=== PATIENT | female | born 1950 | race Caucasian/White ===

== ENCOUNTER → 2019-06-11 10:19 | Outpatient (CLI) | payer OTHER, SELFPAY ==
--- NOTE | 2019-06-11 | DI.RAD.S_ITS ---
PROCEDURE: XR HIP W PEL IF DONE LT 2V INDICATIONS: left hip pain TECHNIQUE: AP and lateral views of the hip were acquired. COMPARISON: None. FINDINGS: Bones: No fractures or dislocations. No suspicious bony lesions. The visualized pelvic ring appears intact. There are mild degenerative changes of the left hip as evidenced by severe joint space narrowing and osteophyte formation. There is a 0.5 cm rounded circumscribed sclerotic focus projecting over it the medial left superior pubic ramus near the pubic symphysis, which may represent a bone enostosis or pelvic phlebolith. Soft tissues: No suspicious soft tissue calcifications or masses. IMPRESSION: Mild degenerative changes of the left hip. Dictated by: Power Porras M.D. on 06/11/2019 at 14:49 Approved by: Power Porras M.D. on 06/11/2019 at 14:52
== END ==
PROVIDERS: PCP Family Medicine; Visit Provider Physician Assistant
DX: M25.552 Pain in left hip (principal)
CPT/HCPCS: 73502

== ENCOUNTER 2019-06-20 19:55 | Emergency (ER) | payer OTHER, SELFPAY ==
[2019-06-20 20:10] VITALS: BP 148/75; PULSE 78; RESP 18; TEMP 36.4; O2SAT 98
--- NOTE | 2019-06-20 20:28 | ED.ABDPAIN ---
HPI - Abdominal Pain General Chief Complaint: Abdominal Pain Stated Complaint: sharp abd pains Time Seen by Provider: 06/20/19 20:25 Source: patient Mode of arrival: ambulatory Limitations: no limitations History of Present Illness HPI narrative: Patient is a 68-year-old female who presents with lower abdominal left discomfort. She got a steroid shot in her left hip for bursitis. She initially thought her left lower quadrant pain was may be inflammation number hip. However it has progressively gotten worse. She has had normal bowel movement she denies any fevers or chills. She has no nausea or vomiting. The pain does not move. She never had anything like this before. MD complaint: abdominal pain Pain Consistency: intermittent Location: LLQ Severity: mild Migration to: no migration Relieving factors: nothing Related Data Home Medications Medication Instructions Recorded Confirmed calcium-magnesium 1 tab PO DAILY 06/20/19 06/20/19 cholecalciferol (vitamin D3) 2,000 unit PO DAILY 06/20/19 06/20/19 [Vitamin D3] omega3,5,6,7,9 no.1-salmon oil 1 cap PO DAILY 06/20/19 06/20/19 [Complete [place]] Allergies Allergy/AdvReac Type Severity Reaction Status Date / Time naproxen [NAPROXEN] AdvReac Severe LIGHTHEADED, Unverified 01/11/18 12:49 INTERNAL BLEEDING Review of Systems Review of Systems Narrative: GENERAL: Denies chills, fatigue, malaise, fever, sweats, travel HEENT: Denies sinus pain, ear pain, sore throat, difficulty swallowing, neck pain RESPIRATORY: Denies dyspnea, cough, wheezing, hemoptysis, sputum. CARDIOVASCULAR: Denies chest pain, palpitations, orthopnea, edema GASTROINTESTINAL: See HPI : Denies dysuria, frequency, incontinence, hematuria, urinary retention, flank pain. MUSCULOSKELETAL: Denies weakness, joint pain, or bony pain SKIN: No rash, no erythema, no pruritus NEUROLOGIC: Denies weakness, dizziness, headache, numbness, change in speech, confusion PSYCHIATRIC: No concerning psychosocial issues. 12 point review of systems is negative except for those stated above and HPI [facility] Medical History Ambulates with cane (Acute) Bursitis of left hip (Acute) GI bleed due to NSAIDs (Acute) Social History Smoking Status: Never smoker Social History Smoking Status: Never smoker Exam Initial Vital Signs Initial Vital Signs: Vital Signs Temperature 97.6 F 06/20/19 20:10 Pulse Rate 78 06/20/19 20:10 Respiratory Rate 18 06/20/19 20:10 Blood Pressure 148/75 H 06/20/19 20:10 Pulse Oximetry 98 06/20/19 20:10 GENERAL: Well-appearing, well-nourished and in no acute distress. HEENT: Head atraumatic,EOMI, pupils reactive, face symmetric CARDIOVASCULAR: Regular rate and rhythm without murmurs, rubs or gallops. RESPIRATORY: Breath sounds equal bilaterally, no wheezes rales or rhonchi. ABDOMEN: Soft, minimal left lower quadrant pain no guarding no rebound : No CVA tenderness EXTREMITIES: Normal range of motion, no clubbing or edema. Neurovascularly intact NEUROLOGICAL: Alert and oriented x4.Normal gait and speech. Cranial nerves II through XII grossly intact. SKIN: Warm, dry, no laceration, no petechiae, no rashes or lesions. Course Orders Ordered: ED Orders 06/20/19 20:25 Complete Blood Count AUTO DIFF Stat Comprehensive Metabolic Panel Stat Lipase Stat Partial Thromboplastin Time Stat Prothrombin Time INR Stat 06/20/19 20:30 Urine Culture Stat Urine Microscopic Stat 06/20/19 20:44 CT abdomen pelvis w con Stat Vital Signs Vital signs: Vital Signs - 8 hr 06/20/19 20:10 Temperature 97.6 F Pulse Rate 78 Respiratory Rate 18 Blood Pressure 148/75 H Pulse Oximetry 98 MDM - Abdominal Pain Lab Data Attestation: I reviewed the patient's lab results. Result diagrams: 06/20/19 20:25 06/20/19 20:25 Labs: Lab Results 06/20/19 06/20/19 06/20/19 Range/Units 20:25 20:25 20:25 WBC 7.1 (4.5-11.0) X10^3/uL RBC 4.55 (4.0-5.2) X10^6/uL Hgb 15.2 (12.0-16.0) g/dL Hct 43.7 (36-46) % MCV 96.1 (80-100) fL MCH 33.4 (26-34) PG MCHC 34.7 (30-36) % RDW 13.5 (11.6-14.8) % Plt Count 343 (150-400) X10^3/uL Neut % (Auto) 70.1 (50-75) % Lymph % (Auto) 18.8 L (25-40) % [place] % (Auto) 10.3 (3-14) % Eos % (Auto) 0.1 L (2-4) % Baso % (Auto) 0.7 (0-2) % Neut # (Auto) 5000 (6567-2091) /uL Lymph # (Auto) 1300 (2152-7586) /uL [place] # (Auto) 700 (0-900) /uL Eos # (Auto) 0 (0-450) /uL Baso # (Auto) 100 (0-100) /uL PT 10.9 (10.1-12.7) SECONDS INR 1.0 (0.9-1.3) APTT 31 (26.4-36.2) SECONDS Sodium 136 L (137-145) mmol/L Potassium 4.4 (3.4-5.1) mmol/L Chloride 95 L (98-107) mmol/L Carbon Dioxide 28 (22-32) mmol/L BUN 16 (7-17) mg/dL Creatinine 0.60 (0.52-1.04) mg/dL Estimated GFR > 60.0 (>60) mL/min BUN/Creatinine Ratio 26.7 H (6-22) Glucose 117 H (80-110) mg/dL Calcium 10.3 H (8.4-10.2) mg/dL Total Bilirubin 0.4 (0.2-1.3) mg/dL AST 17 (14-36) IU/L ALT 13 (9-52) IU/L Alkaline Phosphatase 78 (38-126) U/L Total Protein 7.2 (6.3-8.2) g/dL Albumin 4.4 (3.5-5.0) g/dL Globulin 2.8 (1.7-4.1) g/dL Albumin/Globulin Ratio 1.6 (1.0-2.8) Lipase 120 (23-300) U/L Urine RBC (0-5/HPF) Urine WBC (0-5/HPF) Urine Bacteria (None) Ur Culture Indicated? Micro UA Comment 06/20/19 Range/Units 20:30 WBC (4.5-11.0) X10^3/uL RBC (4.0-5.2) X10^6/uL Hgb (12.0-16.0) g/dL Hct (36-46) % MCV (80-100) fL MCH (26-34) PG MCHC (30-36) % RDW (11.6-14.8) % Plt Count (150-400) X10^3/uL Neut % (Auto) (50-75) % Lymph % (Auto) (25-40) % [place] % (Auto) (3-14) % Eos % (Auto) (2-4) % Baso % (Auto) (0-2) % Neut # (Auto) (1245-3174) /uL Lymph # (Auto) (5418-6934) /uL [place] # (Auto) (0-900) /uL Eos # (Auto) (0-450) /uL Baso # (Auto) (0-100) /uL PT (10.1-12.7) SECONDS INR (0.9-1.3) APTT (26.4-36.2) SECONDS Sodium (137-145) mmol/L Potassium (3.4-5.1) mmol/L Chloride (98-107) mmol/L Carbon Dioxide (22-32) mmol/L BUN (7-17) mg/dL Creatinine (0.52-1.04) mg/dL Estimated GFR (>60) mL/min BUN/Creatinine Ratio (6-22) Glucose (80-110) mg/dL Calcium (8.4-10.2) mg/dL Total Bilirubin (0.2-1.3) mg/dL AST (14-36) IU/L ALT (9-52) IU/L Alkaline Phosphatase (38-126) U/L Total Protein (6.3-8.2) g/dL Albumin (3.5-5.0) g/dL Globulin (1.7-4.1) g/dL Albumin/Globulin Ratio (1.0-2.8) Lipase (23-300) U/L Urine RBC 5-10/hpf H (0-5/HPF) Urine WBC 1-5/hpf (0-5/HPF) Urine Bacteria Few (2-10) H (None) Ur Culture Indicated? Specimen cultured Micro UA Comment Nuno + Point of care testing: Urine Dip Bedside Urine Glucose Negative Bedside Urine Bilirubin - Negative Bedside Urine Ketone - Negative Urine Specific [place] 1.010 Bedside Urine Occult Blood ++ Bedside Urine pH 7.0 Bedside Urine Protein - Negative Bedside Urine Urobilinogen - Negative Bedside Urine Nitrite - Negative Bedside Urine Leukocytes + [address] scan - abdomen: Radiologist's impression: PROCEDURE: CT ABDOMEN PELVIS W CON INDICATIONS: llq pain TECHNIQUE: After the administration of intravenous contrast, 5 mm thick sections acquired from the diaphragm to the symphysis. 5 mm coronal and sagittal reformats were acquired. For radiation dose reduction, the following was used: automated exposure control, adjustment of mA and/or kV according to patient size. COMPARISON: [facility], CT, KIDNEY/ URETER/BLADDER, 04/05/2015, 13:15. [facility], CT, CT ABDOMEN PELVIS WITH CONTRAST, 04/13/2018, 17:35. [facility], CT, CT CHEST WITHOUT CONTRAST, 03/01/2019, 14:44. FINDINGS: Image quality: Excellent. ABDOMEN: Lung bases: There is a stable area of soft tissue involving the left lower lobe medially Lung bases are otherwise clear. Heart size is normal. Solid organs: Liver is normal in size and enhancement. Stable water density liver cysts are seen. Gallbladder is largely collapsed at the time of this study. Biliary system is non dilated. Pancreas enhances normally. Spleen is normal in size and enhancement. No adrenal nodules. Kidneys demonstrate normal size and enhancement, without hydronephrosis. Peritoneum and bowel: In this patient with this given history, scrutiny is given to the sigmoid colon. No focal sigmoid colon abnormality is seen. The small bowel loops are diffusely hyperenhancing and demonstrate generalized wall thickening. The duodenum is prominent and fluid-filled. There is a moderate amount of stool seen within the colon. No free air can be seen. No significant free pelvic fluid can be seen. No loculated fluid collection is seen to suggest abscess. Nodes and vessels: No retroperitoneal or mesenteric adenopathy by size criteria. Aorta and inferior vena cava are normal in size. Miscellaneous: No ventral hernias. PELVIS: Genitourinary: Bladder wall thickness is normal. Miscellaneous: No inguinal hernias or adenopathy. Bones: No suspicious bony lesions. No vertebral body compression fractures. Mild dextroconvex scoliotic curvature is seen. Age-appropriate bony degenerative changes are seen. IMPRESSION: Diffuse enteritis. Incidental note is made of: Stable left lower lobe bronchopulmonary sequestration Liver cysts Dextroconvex clinic curvature Dictated by: Abraham Malloy M.D. on 06/20/2019 at 21:05 MDM Narrative Medical decision making narrative: Patient is noted to have diffuse enteritis on CT. She has no leukocytosis or fever. His she does not want anything for pain. At this time I recommend conservative I tried to reassure her that this is unlikely related to her bursitis in her hip injection. Recommend outpatient follow-up. Discharge Plan Departure Patient Disposition: Home Clinical Impression: Colitis Discharge Date/Time: 06/20/19 21:50 Instructions: Clear Liquid Diet, DI for Colitis Activity Restrictions/Additional Instructions: *You have been diagnosed with colitis *What to do: Inflammation of your intestine. This will likely clear up on its own at this time no indication for antibiotics. Recommend trying a clear liquid diet for the next 24-48 hours. You may advance diet as tolerated *Continue to take medications as directed *Follow up with your primary care provider in 2-3 days *Return to ER if you should have increasing pain bloody stools persistent vomiting inability to tolerate fluids or any new, worsening or concerning symptoms Prescriptions: No Action calcium-magnesium 300-300 mg Tablet 1 tab PO DAILY RF: 0 cholecalciferol (vitamin D3) [Vitamin D3] 1,000 unit Capsule 2,000 unit PO DAILY RF: 0 Complete [place] 700-1,500 mg-mg Capsule 1 cap PO DAILY RF: 0 Referrals: Joelle March MD [Primary Care Provider] -
[2019-06-20 20:40] LABS: Add Manual Diff / Slide Review NO; Basophils Absolute Auto 100 /uL (0-100); Basophils Percent Auto 0.7 % (0-2); Eosinophils Absolute Auto 0 /uL (0-450); Eosinophils Percent Auto 0.1 % (2-4); Hematocrit 43.7 % (36-46); Hemoglobin 15.2 g/dL (12.0-16.0); Lymphocytes Absolute Auto 1300 /uL (1100-4500); Lymphocytes Percent Auto 18.8 % (25-40); Mean Corpuscular HGB Conc 34.7 % (30-36); Mean Corpuscular Hemoglobin 33.4 PG (26-34); Mean Corpuscular Volume 96.1 fL (80-100); Monocytes Absolute Auto 700 /uL (0-900); Monocytes Percent Auto 10.3 % (3-14); Neutrophils Absolute Auto 5000 /uL (1500-7000); Neutrophils Percent Auto 70.1 % (50-75); Platelet Count 343 X10^3/uL (150-400); Red Blood Cell Count 4.55 X10^6/uL (4.0-5.2); Red Cell Distribution Width 13.5 % (11.6-14.8); White Blood Cell Count 7.1 X10^3/uL (4.5-11.0)
[2019-06-20 20:42] LABS: Alanine Aminotransferase 13 IU/L (9-52); Albumin 4.4 g/dL (3.5-5.0); Albumin Globulin Ratio 1.6 (1.0-2.8); Alkaline Phosphatase 78 U/L (38-126); Aspartate Aminotransferase 17 IU/L (14-36); BUN Creatinine Ratio 26.7 (6-22); Bilirubin Total 0.4 mg/dL (0.2-1.3); Blood Urea Nitrogen 16 mg/dL (7-17); Calcium 10.3 mg/dL (8.4-10.2); Carbon Dioxide 28 mmol/L (22-32); Chloride 95 mmol/L (98-107); Estimated Glomerular Filt Rate > 60.0 mL/min (>60); Globulin 2.8 g/dL (1.7-4.1); Glucose 117 mg/dL (80-110); HEMOLYSIS < 15 (0-50); Lipase 120 U/L (23-300); Potassium 4.4 mmol/L (3.4-5.1); Sodium 136 mmol/L (137-145); Total Protein 7.2 g/dL (6.3-8.2)
--- NOTE | 2019-06-20 20:44 | DI.CT.S_ITS ---
PROCEDURE: CT ABDOMEN PELVIS W CON INDICATIONS: llq pain TECHNIQUE: After the administration of intravenous contrast, 5 mm thick sections acquired from the diaphragm to the symphysis. 5 mm coronal and sagittal reformats were acquired. For radiation dose reduction, the following was used: automated exposure control, adjustment of mA and/or kV according to patient size. COMPARISON: [facility], CT, KIDNEY/ URETER/BLADDER, 04/05/2015, 13:15. [facility], CT, CT ABDOMEN PELVIS WITH CONTRAST, 04/13/2018, 17:35. [facility], CT, CT CHEST WITHOUT CONTRAST, 03/01/2019, 14:44. FINDINGS: Image quality: Excellent. ABDOMEN: Lung bases: There is a stable area of soft tissue involving the left lower lobe medially Lung bases are otherwise clear. Heart size is normal. Solid organs: Liver is normal in size and enhancement. Stable water density liver cysts are seen. Gallbladder is largely collapsed at the time of this study. Biliary system is non dilated. Pancreas enhances normally. Spleen is normal in size and enhancement. No adrenal nodules. Kidneys demonstrate normal size and enhancement, without hydronephrosis. Peritoneum and bowel: In this patient with this given history, scrutiny is given to the sigmoid colon. No focal sigmoid colon abnormality is seen. The small bowel loops are diffusely hyperenhancing and demonstrate generalized wall thickening. The duodenum is prominent and fluid-filled. There is a moderate amount of stool seen within the colon. No free air can be seen. No significant free pelvic fluid can be seen. No loculated fluid collection is seen to suggest abscess. Nodes and vessels: No retroperitoneal or mesenteric adenopathy by size criteria. Aorta and inferior vena cava are normal in size. Miscellaneous: No ventral hernias. PELVIS: Genitourinary: Bladder wall thickness is normal. Miscellaneous: No inguinal hernias or adenopathy. Bones: No suspicious bony lesions. No vertebral body compression fractures. Mild dextroconvex scoliotic curvature is seen. Age-appropriate bony degenerative changes are seen. IMPRESSION: Diffuse enteritis. Incidental note is made of: Stable left lower lobe bronchopulmonary sequestration Liver cysts Dextroconvex clinic curvature Dictated by: Abraham Malloy M.D. on 06/20/2019 at 21:05 Approved by: Abraham Malloy M.D. on 06/20/2019 at 21:11
[2019-06-20 20:51] LABS: Prothrombin Time 10.9 SECONDS (10.1-12.7)
[2019-06-20 20:54] LABS: PTT Partial Thromboplastin Tim 31 SECONDS (26.4-36.2)
[2019-06-20 20:56] LABS: Bacteria Urine Few (2-10); RBC Urine 5-10/HPF (0-5/HPF); WBC Urine 1-5/HPF (0-5/HPF)
[2019-06-20 20:57] LABS: Culture Indicated Urine Specimen Cultured; Urine Comments LEU +
== END 2019-06-20 21:50 | disposition home or self-care (01) ==
PROVIDERS: Emergency Provider Emergency Medicine; Family Provider Family Medicine; PCP Family Medicine
DX: K52.9 Noninfective gastroenteritis and colitis, unspecified (principal)
CPT/HCPCS: 36591; 74177; 80053; 81003; 81015; 83690; 85025; 85610; 85730; 87086; 99282; 99285; Q9967

== ENCOUNTER 2021-07-17 09:12 | Emergency (ER) | payer MEDICARE, SELFPAY ==
[2021-07-17 09:15] VITALS: BP 182/76; PULSE 82; RESP 18; TEMP 37; O2SAT 100; BMI 19.9
[2021-07-17 09:23] VITALS: PULSE 100; O2SAT 98
[2021-07-17 09:30] VITALS: PULSE 88; RESP 18; O2SAT 100
[2021-07-17 09:31] VITALS: BP 154/68; PULSE 91; RESP 17; O2SAT 99
--- NOTE | 2021-07-17 09:44 | ED_ITS ---
HPI - Arrhythmia/Palpitations General Chief Complaint: Arrhythmia/Palpitations Stated Complaint: low pulse/sent by Dr. Becerra Time Seen by Provider: 07/17/21 09:25 Source: patient Mode of arrival: Ambulatory Limitations: no limitations History of Present Illness HPI narrative: 70-year-old woman recently started on amlodipine for blood pressure issues comes in after her blood pressure cuff shoulder her heart rate was 47 and brief nurse call instructed her to come to the emergency department. For the last week or so she has been having some general malaise and fatigue. No chest pain palpitations, fevers cough chills, vomiting, diarrhea common duct dark stools, abdominal pain, acute neurologic findings. She does have some chronic neck pain and that has been bothering her on the right side in the trapezius muscle area. She was seen at urgent care on Tuesday with blood work done was reassured that things were normal. She met with her new primary care physician, Dr. Becerra on Tuesday with blood work repeated. Zio patch was placed on Tuesday as well and due to be removed and red next Tuesday. Related Data Home Medications Medication Instructions Recorded Confirmed calcium-magnesium 300 mg-300 mg 1 tab PO DAILY 06/20/19 06/20/19 tablet cholecalciferol (vitamin D3) 25 2,000 unit PO DAILY 06/20/19 06/20/19 mcg (1,000 unit) capsule (Vitamin D3) omega 3,5,6,7,9 combination no.1 1 cap PO DAILY 06/20/19 06/20/19 700 mg-salmon oil 1,500 mg capsule (Complete [place]) Allergies Allergy/AdvReac Type Severity Reaction Status Date / Time naproxen [NAPROXEN] AdvReac Severe LIGHTHEADED, Verified 07/17/21 09:32 INTERNAL BLEEDING Review of Systems Review of Systems Narrative: Remainder of complete review of systems is otherwise unremarkable except for that included in the HPI. Patient History Medical History (Updated 07/17/21 @ 10:21 by Christa Garcia MD) Ambulates with cane Bursitis of left hip GI bleed due to NSAIDs Social History Smoking Status: Never smoker Smoking Status: Never smoker alcohol intake frequency: holidays/special occasions only Substance Use Type: does not use Exam Narrative Exam Narrative: General: Healthy appearing, in no acute distress. Able to give a complete and coherent history. Well-nourished well-developed HEENT: Moist mucous membranes, normal sclera with reactive pupils, Neck: No JVD, supple Respiratory: Lungs are clear to auscultation, no wheezing no rales no rhonchi. Full and symmetrical air movement Cardiac: Regular rate and rhythm no murmurs no bruits Abdomen: Soft, nontender, good bowel tones, no flank pain Skin: Warm and dry, no rashes Neurologic: Grossly neurologically intact with no obvious asymmetries or abnormalities Extremities: No trauma, well perfused Psych: Cooperative, appropriate insight and affect Initial Vital Signs Initial Vital Signs: Vital Signs Temperature 98.6 F 07/17/21 09:15 Pulse Rate 82 07/17/21 09:15 Respiratory Rate 18 07/17/21 09:15 Blood Pressure 182/76 H 07/17/21 09:15 Pulse Oximetry 100 07/17/21 09:15 Course Orders Ordered: ED Orders 07/17/21 09:34 EKG-12 Lead Stat Vital Signs Vital signs: Vital Signs - 8 hr 07/17/21 09:15 Temperature 98.6 F Pulse Rate 82 Respiratory Rate 18 Blood Pressure 182/76 H Pulse Oximetry 100 MDM - Arrhythmia/Palpitations ECG Data Interpretation: Sinus rhythm with frequent PVCs at a rate of 85 Normal axis No acute ischemic changes MDM Narrative Medical decision making narrative: Concerns and findings are reviewed with Dr Becerra. Given her blood work on Tuesday and Tuesday of this week that is unremarkable along with a a normal thyroid study done on , reassuring exam, reassuring EKG and normal rate rhythm and blood pressures in the emergency department in the setting of Zio patch currently in place I do not think that additional workup is required today. I suspect that the frequent PVCs were giving her blood pressure cuff an abnormally low heart rate. Today I showed her how to check her own heart rate to double-check monitors. She has follow-up scheduled with Dr. Becerra already. Over the course of her ER stay her blood pressure has started to trend down and PVCs have completely resolved. She did take her 2.5 mg of amlodipine about 2 hours prior to arrival and we may be seeing the positive physiologic effects of this. At this time there is no evidence of life-threatening arrhythmia, acute coronary syndrome, stroke or alternative diagnosis that would require hospitalization. She is safe for home discharge Discharge Plan Departure Patient Disposition: Home Clinical Impression: Palpitations Instructions: Premature Ventricular Beats Activity Restrictions/Additional Instructions: Thank you for coming in today In talking with Dr. Becerra and reviewing blood work from Tuesday along with your EKG from today, I am reassured that we do not need to do any additional workup today. The Zio patch that you currently have in place will offer additional insight. Please continue the amlodipine as started, keep your follow-up appointments and if things get worse you are welcome to return to the ER. Prescriptions: No Action calcium-magnesium 300-300 mg Tablet 1 tab PO DAILY RF: 0 cholecalciferol (vitamin D3) [Vitamin D3] 1,000 unit Capsule 2,000 unit PO DAILY RF: 0 Complete [place] 700-1,500 mg-mg Capsule 1 cap PO DAILY RF: 0 Referrals: Wilbert Becerra MD [Primary Care Provider] -
[2021-07-17 10:00] VITALS: BP 131/60; PULSE 68; RESP 24; O2SAT 97
== END 2021-07-17 10:28 | disposition home or self-care (01) ==
PROVIDERS: Emergency Provider Emergency Medicine; Family Provider Family Medicine; PCP Internal Medicine
DX: R00.2 Palpitations (principal); I49.3 Ventricular premature depolarization
CPT/HCPCS: 36415; 93005; 93010; 99283

== ENCOUNTER 2022-02-12 08:59 | Emergency (ER) | payer MEDICARE, SELFPAY ==
[2022-02-12 09:07] VITALS: BP 139/79; PULSE 71; O2SAT 95
[2022-02-12 09:25] VITALS: BP 139/79; PULSE 86; RESP 18; TEMP 36.9; O2SAT 97; BMI 18.6
--- NOTE | 2022-02-12 09:29 | DI.RAD.S_ITS ---
PROCEDURE: XR CHEST 1V INDICATIONS: chest pain TECHNIQUE: One view of the chest was acquired. COMPARISON: [facility], , CHEST 1 VIEW, 12/11/2016, 17:00. FINDINGS: Surgical changes and devices: None. Lungs and pleura: Lungs are clear. No pleural effusions or pneumothorax. Mediastinum: Mediastinal contours appear normal. Heart size is normal. Bones and chest wall: No suspicious bony lesions. Overlying soft tissues appear unremarkable. IMPRESSION: No acute process. Dictated by: Socorro Haas M.D. on 02/12/2022 at 10:10 Approved by: Socorro Haas M.D. on 02/12/2022 at 10:11
[2022-02-12 09:30] VITALS: BP 151/71; PULSE 72; RESP 14; O2SAT 99
[2022-02-12 09:39] LABS: Add Manual Diff / Slide Review NO; Basophils Absolute Auto 100 /uL (0-100); Basophils Percent Auto 1.4 % (0-2); Eosinophils Absolute Auto 100 /uL (0-450); Eosinophils Percent Auto 1.1 % (2-4); Hematocrit 45.2 % (36-46); Hemoglobin 15.4 g/dL (12.0-16.0); Lymphocytes Absolute Auto 1400 /uL (1100-4500); Lymphocytes Percent Auto 26.5 % (25-40); Mean Corpuscular HGB Conc 34.1 % (30-36); Mean Corpuscular Hemoglobin 33.4 PG (26-34); Mean Corpuscular Volume 98.2 fL (80-100); Monocytes Absolute Auto 500 /uL (0-900); Monocytes Percent Auto 9.2 % (3-14); Neutrophils Absolute Auto 3200 /uL (1500-7000); Neutrophils Percent Auto 61.8 % (50-75); Platelet Count 250 X10^3/uL (150-400); Red Cell Distribution Width 13.6 % (11.6-14.8); White Blood Cell Count 5.2 X10^3/uL (4.5-11.0)
[2022-02-12 09:44] LABS: Alanine Aminotransferase 17 IU/L (<35); Albumin 4.6 g/dL (3.5-5.0); Albumin Globulin Ratio 1.4 (1.0-2.8); Alkaline Phosphatase 49 U/L (38-126); Aspartate Aminotransferase 30 IU/L (14-36); BUN Creatinine Ratio 22.1 (6-22); Bilirubin Total 0.7 mg/dL (0.2-1.3); Blood Urea Nitrogen 15 mg/dL (7-17); Calcium 9.7 mg/dL (8.4-10.2); Carbon Dioxide 28 mmol/L (22-32); Chloride 103 mmol/L (98-107); Creatine Kinase 33 U/L (30-135); Estimated Glomerular Filt Rate > 60 mL/min (>60); Globulin 3.2 g/dL (1.7-4.1); Glucose 142 mg/dL (80-110); HEMOLYSIS 19 (0-50); Lipase 97 U/L (23-300); Potassium 3.6 mmol/L (3.4-5.1); Sodium 138 mmol/L (137-145); Total Protein 7.8 g/dL (6.3-8.2)
--- NOTE | 2022-02-12 09:44 | ED_ITS ---
HPI - General Adult General Chief complaint: Dizziness Stated complaint: sent by [facility] need ekg Time Seen by Provider: 02/12/22 09:04 Source: patient Mode of arrival: Ambulatory Limitations: no limitations History of Present Illness HPI narrative: Patient is a 71-year-old female who was sent from the walk-in clinic for evaluation of feeling very fatigued and lightheaded for the past 5 days. There was some concern about an irregular heart rhythm on exam. Patient denies palpitations. Has a history of high blood pressure. Was last placed on blood pressure medicine approximately 5 her 6 months ago. She denies headache. Describes the lightheadedness as several times a day it comes on lasts several m inutes and then completely resolves. Is not associated with anything else. She does not know of 1 specific thing that causes the symptoms to come on. No chest pain. No shortness of breath. No abdominal pain. No nausea vomiting. No sinus congestion. No sore throat. No weakness in arms and legs. No urinary symptoms. No black colored or dark-colored stools. No rashes. Related Data Home Medications Medication Instructions Recorded Confirmed calcium-magnesium 300 mg-300 mg 1 tab PO DAILY 06/20/19 06/20/19 tablet cholecalciferol (vitamin D3) 25 2,000 unit PO DAILY 06/20/19 06/20/19 mcg (1,000 unit) capsule (Vitamin D3) omega 3,5,6,7,9 combination no.1 1 cap PO DAILY 06/20/19 06/20/19 700 mg-salmon oil 1,500 mg capsule (Complete [place]) Allergies Allergy/AdvReac Type Severity Reaction Status Date / Time naproxen [NAPROXEN] AdvReac Severe LIGHTHEADED, Verified 02/12/22 09:28 INTERNAL BLEEDING Review of Systems Review of Systems ROS Unobtainable: All systems reviewed & are unremarkable except as noted in HPI and below Patient History Medical History (Updated 02/12/22 @ 11:17 by Kunal Pederson DO) Ambulates with cane Bursitis of left hip GI bleed due to NSAIDs Social History Smoking Status: Never smoker Smoking Status: Never smoker alcohol intake frequency: holidays/special occasions only Substance Use Type: does not use Exam Initial Vital Signs Initial Vital Signs: Vital Signs Pulse Rate 71 02/12/22 09:07 Blood Pressure 139/79 02/12/22 09:07 Pulse Oximetry 95 02/12/22 09:07 Const General: cooperative, healthy appearing and comfortable HENMT Head: normal to inspection and normocephalic Eyes General: Yes appearance normal, both eyes and all related structures Chest Chest: normal inspection of the chest Resp Effort & Inspection: normal respiratory effort Auscultation: clear to auscultation bilaterally Cardio Rate: regular rate Rhythm: regular rhythm GI Inspection: normal to inspection Palpation: soft Skin General: no rashes or lesions noted Neuro General: patient alert, patient awake, patient oriented x3 and moves all extremities Extrem General: normal to inspection, capillary refill normal and No edema Psych Appearance: grossly normal and well kempt Course Orders Ordered: ED Orders 02/12/22 09:10 COVID19 -Nasal RAPID/Pre-Proc Stat 02/12/22 09:15 Complete Blood Count AUTO DIFF Stat Comprehensive Metabolic Panel Stat Lipase Stat Magnesium Stat TSH [Thyroid Stimulating Hormone] Stat Troponin & CK Cardiac Panel Stat 02/12/22 09:29 XR chest 1V Stat EKG-12 Lead Stat Vital Signs Vital signs: Vital Signs - 8 hr 02/12/22 09:07 02/12/22 09:25 02/12/22 09:30 Temperature 98.4 F Pulse Rate 71 86 72 Respiratory Rate 18 14 Blood Pressure 139/79 139/79 151/71 H Pulse Oximetry 95 97 99 02/12/22 10:00 02/12/22 10:30 Temperature Pulse Rate 75 75 Respiratory Rate 12 14 Blood Pressure 151/84 H 164/75 H Pulse Oximetry 98 98 Medical Decision Making Lab Data Lab results reviewed: Yes I reviewed the patient's lab results. Result diagrams: 02/12/22 09:15 02/12/22 09:15 Labs: Lab Results 02/12/22 02/12/22 02/12/22 Range/Units 09:10 09:15 09:15 WBC 5.2 (4.5-11.0) X10^3/uL RBC 4.60 (4.0-5.2) X10^6/uL Hgb 15.4 (12.0-16.0) g/dL Hct 45.2 (36-46) % MCV 98.2 (80-100) fL MCH 33.4 (26-34) PG MCHC 34.1 (30-36) % RDW 13.6 (11.6-14.8) % Plt Count 250 (150-400) X10^3/uL Neut % (Auto) 61.8 (50-75) % Lymph % (Auto) 26.5 (25-40) % [place] % (Auto) 9.2 (3-14) % Eos % (Auto) 1.1 L (2-4) % Baso % (Auto) 1.4 (0-2) % Neut # (Auto) 3200 (0987-8276) /uL Lymph # (Auto) 1400 (2999-4458) /uL [place] # (Auto) 500 (0-900) /uL Eos # (Auto) 100 (0-450) /uL Baso # (Auto) 100 (0-100) /uL Sodium 138 (137-145) mmol/L Potassium 3.6 (3.4-5.1) mmol/L Chloride 103 (98-107) mmol/L Carbon Dioxide 28 (22-32) mmol/L BUN 15 (7-17) mg/dL Creatinine 0.68 (0.52-1.04) mg/dL Estimated GFR > 60 (>60) mL/min BUN/Creatinine Ratio 22.1 H (6-22) Glucose 142 H (80-110) mg/dL Calcium 9.7 (8.4-10.2) mg/dL Magnesium 2.0 (1.6-2.3) mg/dL Total Bilirubin 0.7 (0.2-1.3) mg/dL AST 30 (14-36) IU/L ALT 17 (<35) IU/L Alkaline Phosphatase 49 (38-126) U/L Total Creatine Kinase 33 (30-135) U/L CK-MB (CK-2) TNP CK-MB (CK-2) Rel Index TNP Troponin I < 0.012 (0.01-0.034) ng/mL Total Protein 7.8 (6.3-8.2) g/dL Albumin 4.6 (3.5-5.0) g/dL Globulin 3.2 (1.7-4.1) g/dL Albumin/Globulin Ratio 1.4 (1.0-2.8) Lipase 97 (23-300) U/L TSH (0.47-4.68) uIU/mL SARS-CoV-2 (PCR) Negative (Negative) 02/12/22 Range/Units 09:15 WBC (4.5-11.0) X10^3/uL RBC (4.0-5.2) X10^6/uL Hgb (12.0-16.0) g/dL Hct (36-46) % MCV (80-100) fL MCH (26-34) PG MCHC (30-36) % RDW (11.6-14.8) % Plt Count (150-400) X10^3/uL Neut % (Auto) (50-75) % Lymph % (Auto) (25-40) % [place] % (Auto) (3-14) % Eos % (Auto) (2-4) % Baso % (Auto) (0-2) % Neut # (Auto) (4323-0552) /uL Lymph # (Auto) (5757-6175) /uL [place] # (Auto) (0-900) /uL Eos # (Auto) (0-450) /uL Baso # (Auto) (0-100) /uL Sodium (137-145) mmol/L Potassium (3.4-5.1) mmol/L Chloride (98-107) mmol/L Carbon Dioxide (22-32) mmol/L BUN (7-17) mg/dL Creatinine (0.52-1.04) mg/dL Estimated GFR (>60) mL/min BUN/Creatinine Ratio (6-22) Glucose (80-110) mg/dL Calcium (8.4-10.2) mg/dL Magnesium (1.6-2.3) mg/dL Total Bilirubin (0.2-1.3) mg/dL AST (14-36) IU/L ALT (<35) IU/L Alkaline Phosphatase (38-126) U/L Total Creatine Kinase (30-135) U/L CK-MB (CK-2) CK-MB (CK-2) Rel Index Troponin I (0.01-0.034) ng/mL Total Protein (6.3-8.2) g/dL Albumin (3.5-5.0) g/dL Globulin (1.7-4.1) g/dL Albumin/Globulin Ratio (1.0-2.8) Lipase (23-300) U/L TSH 2.47 (0.47-4.68) uIU/mL SARS-CoV-2 (PCR) (Negative) Imaging Data Chest x-ray: Radiologist's Impression: [address] [address] XRay Report Signed Patient: Sonia Bhandari MR#: [id number] : 1950 Acct:[id number] Age/Sex: 71 / F Date of Service: 02/12/22 Loc: ED Accession Number: [id number] ?? Procedure: XR chest 1V Ordering Provider: Kunal Pederson D.O. PROCEDURE:? XR CHEST 1V ? INDICATIONS:? chest pain ? TECHNIQUE:? One view of the chest was acquired.? ? COMPARISON:? [facility], , CHEST 1 VIEW, 12/11/2016, 17:00. ? FINDINGS:? ? Surgical changes and devices:? None.? ? Lungs and pleura:? Lungs are clear.? No pleural effusions or pneumothorax.? ? Mediastinum:? Mediastinal contours appear normal.? Heart size is normal.? ? Bones and chest wall:? No suspicious bony lesions.? Overlying soft tissues appear unremarkable.? ? IMPRESSION:? No acute process. ? ? Dictated by: Socorro Haas M.D. on 02/12/2022 at 10:10 ? ? Approved by: Socorro Haas M.D. on 02/12/2022 at 10:11? ECG Data Attestation: I personally reviewed and interpreted this ECG as follows: Prior ECG tracings: not available for review Interpretation: Sinus rhythm Ventricular rate is 76 Normal axis Normal QRS Normal QTC Artifact noted in V3 No ST T wave changes MDM Narrative Medical decision making narrative: Labs are reassuring electrolytes unremarkable. Is not having any urinary symptoms. EKG is unremarkable. Low suspicion for CVA/TIA. She did have an episode of lightheadedness while she was on the monitor and that did not show anything more significant than sinus rhythm. Patient ambulated. Unsure the exact etiology and I had a discussion with her and her regarding this. Advised the contact the primary doctor for follow-up. They were given return precautions. Expressed understanding and agreement. Discharge Plan Departure Patient Disposition: Home Clinical Impression: Dizziness Instructions: DI for Dizziness-Nonvertigo Activity Restrictions/Additional Instructions: I do recommend that you continue to take all of your medications as directed and contact your primary doctor for a follow-up. Return to the emergency department for any new or worsening symptoms. Prescriptions: No Action calcium-magnesium 300-300 mg Tablet 1 tab PO DAILY 0RF cholecalciferol (vitamin D3) [Vitamin D3] 1,000 unit Capsule 2,000 unit PO DAILY 0RF Complete [place] 700-1,500 mg-mg Capsule 1 cap PO DAILY 0RF Referrals: Wilbert Becerra MD [Primary Care Provider] -
[2022-02-12 09:54] LABS: COVID19 -Nasal RAPID Negative (Negative)
[2022-02-12 09:56] LABS: Troponin I < 0.012 ng/mL (0.01-0.034)
[2022-02-12 10:00] VITALS: BP 151/84; PULSE 75; RESP 12; O2SAT 98
[2022-02-12 10:30] VITALS: BP 164/75; PULSE 75; RESP 14; O2SAT 98
[2022-02-12 10:40] LABS: Thyroid Stimulating Hormone 2.47 uIU/mL (0.47-4.68)
[2022-02-12 11:31] VITALS: BP 143/71; PULSE 71; O2SAT 99
== END 2022-02-12 11:31 | disposition home or self-care (01) ==
PROVIDERS: Emergency Provider Emergency Medicine; Family Provider Family Medicine; PCP Internal Medicine
DX: R42 Dizziness and giddiness (principal); R07.9 Chest pain, unspecified; Z20.822 Contact with and (suspected) exposure to COVID-19
CPT/HCPCS: 36415; 71045; 80053; 82550; 83690; 83735; 84443; 84484; 85025; 87635; 93005; 99284; C9803

== ENCOUNTER → 2022-03-05 10:44 | Outpatient (CLI) | payer MEDICARE, SELFPAY ==
[2022-03-05 12:01] LABS: BUN Creatinine Ratio 24.2 (6-22); Blood Urea Nitrogen 16 mg/dL (7-17); Calcium 9.3 mg/dL (8.4-10.2); Carbon Dioxide 23 mmol/L (22-32); Chloride 101 mmol/L (98-107); Estimated Glomerular Filt Rate > 60 mL/min (>60); Glucose 100 mg/dL (80-110); HEMOLYSIS < 15 (0-50); Potassium 4.2 mmol/L (3.4-5.1); Sodium 132 mmol/L (137-145)
== END ==
PROVIDERS: Family Provider Family Medicine; PCP Internal Medicine; Referring Provider Internal Medicine; Visit Provider Internal Medicine
DX: I10 Essential (primary) hypertension (principal)
CPT/HCPCS: 36415; 80048

== ENCOUNTER → 2022-10-13 08:28 | Outpatient (CLI) | payer MEDICARE, BC, SELFPAY ==
[2022-10-13 09:27] LABS: Alanine Aminotransferase 18 IU/L (<35); Albumin 4.2 g/dL (3.5-5.0); Albumin Globulin Ratio 1.5 (1.0-2.8); Alkaline Phosphatase 54 U/L (38-126); Aspartate Aminotransferase 21 IU/L (14-36); BUN Creatinine Ratio 27.6 (6-22); Bilirubin Total 0.8 mg/dL (0.2-1.3); Blood Urea Nitrogen 16 mg/dL (7-17); Calcium 9.7 mg/dL (8.4-10.2); Carbon Dioxide 26 mmol/L (22-32); Chloride 95 mmol/L (98-107); Estimated Glomerular Filt Rate > 60 mL/min (>60); Globulin 2.8 g/dL (1.7-4.1); Glucose 102 mg/dL (80-110); HEMOLYSIS < 15 (0-50); Potassium 4.5 mmol/L (3.4-5.1); Sodium 130 mmol/L (137-145)
== END ==
PROVIDERS: Family Provider Family Medicine; PCP Internal Medicine; Referring Provider Internal Medicine; Visit Provider Internal Medicine
DX: I10 Essential (primary) hypertension; M81.0 Age-related osteoporosis without current pathological fracture
CPT/HCPCS: 36415; 80053

== ENCOUNTER 2022-12-09 04:36 | Emergency (ER) | payer MEDICARE, BC, SELFPAY ==
[2022-12-09 04:50] VITALS: BP 150/68; PULSE 87; RESP 17; TEMP 36.6; O2SAT 97; BMI 19.1
--- NOTE | 2022-12-09 04:59 | DI.RAD.S_ITS ---
PROCEDURE: XR CHEST 1V INDICATIONS: eval for PNA TECHNIQUE: One view of the chest was acquired. COMPARISON: [facility], CT, CT ABDOMEN PELVIS W CON, 06/20/2019, 20:51. [facility], CR, XR CHEST 1 VIEW, 07/02/2019, 15:46. [facility], CR, XR CHEST 1V, 02/12/2022, 9:40. FINDINGS: Surgical changes and devices: None. Lungs and pleura: Mild infiltrate in the right lower lung zone medially suspicious for developing pneumonia. No pleural effusions or pneumothorax. Mediastinum: Mediastinal contours appear normal. Heart size is normal. Bones and chest wall: No suspicious bony lesions. Overlying soft tissues appear unremarkable. IMPRESSION: 1. Suspect developing pneumonia. No significant discrepancy with the weight shifter radiology preliminary report. Dictated by: Ricarda Stout M.D. on 12/09/2022 at 8:03 Approved by: Ricarda Stout M.D. on 12/09/2022 at 8:05
--- NOTE | 2022-12-09 05:00 | ED_ITS ---
HPI - General Adult General Chief complaint: Upper Respiratory Symptoms Stated complaint: headache, cough Time Seen by Provider: 12/09/22 04:54 Source: patient and family Mode of arrival: Ambulatory Limitations: no limitations History of Present Illness HPI narrative: Patient is a 72-year-old female who is here for evaluation of generalized body aches, nausea, cough and headache. Her symptoms have been going on for the past couple days however the last 2 nights she is had difficult time sleeping. Last night it was because she was coughing in the night before his because she just and feel very well. She is taken a couple COVID tests at home that were negative. She states she does feel like she is having quite a bit of chest congestion. She describes her headache as a slight headache in the back. No n farzaneh pain. No shortness of breath. No rashes. Related Data Home Medications Medication Instructions Recorded Confirmed calcium-magnesium 300 mg-300 mg 1 tab PO DAILY 06/20/19 11/23/22 tablet cholecalciferol (vitamin D3) 25 2,000 unit PO DAILY 06/20/19 11/23/22 mcg (1,000 unit) capsule (Vitamin D3) omega 3,5,6,7,9 combination no.1 1 cap PO DAILY 06/20/19 11/23/22 700 mg-salmon oil 1,500 mg capsule (Complete [place]) Previous Rx's Medication Instructions Recorded carvedilol 3.125 mg tablet 3.125 mg PO BID #180 tabs 08/19/22 pravastatin 10 mg tablet 10 mg PO BEDTIME #90 tabs 11/23/22 azithromycin 250 mg tablet See Rx Instructions PO .COMPLEX #6 12/09/22 tabs ondansetron 4 mg disintegrating 4 mg PO Q6H PRN nausea and 12/09/22 tablet vomiting #14 tabs Allergies Allergy/AdvReac Type Severity Reaction Status Date / Time naproxen [NAPROXEN] AdvReac Severe LIGHTHEADED, Verified 11/23/22 14:58 INTERNAL BLEEDING rosuvastatin AdvReac Severe Joint pain Verified 11/23/22 14:58 amlodipine AdvReac Intermediate Nausea Verified 11/23/22 14:58 losartan AdvReac Intermediate Dizziness Verified 11/23/22 14:58 Review of Systems Constitutional Constitutional: Reports system reviewed and no additional complaints, except as documented ENT Ears, Nose, Mouth, and Throat: Reports system reviewed and no additional complaints, except as documented Cardiovascular Cardiovascular: Reports system reviewed and no additional complaints, except as documented Respiratory Respiratory: Reports system reviewed and no additional complaints, except as documented Gastrointestinal Gastrointestinal: Reports system reviewed and no additional complaints, except as documented Integumentary/Breasts Skin/Breast: Reports system reviewed and no additional complaints, except as documented Patient History Medical History Advanced directives, counseling/discussion Age-related osteoporosis without current pathological fracture Ambulates with cane Bursitis of left hip Essential hypertension GI bleed due to NSAIDs Medicare annual wellness visit, initial Mixed hyperlipidemia Social History details: ([place]) Smoking Status: Never smoker Smoking Status: Never smoker alcohol intake frequency: holidays/special occasions only Substance Use Type: does not use Exam Initial Vital Signs Initial Vital Signs: Vital Signs Temperature 98 F 12/09/22 04:50 Pulse Rate 87 12/09/22 04:50 Respiratory Rate 17 12/09/22 04:50 Blood Pressure 150/68 H 12/09/22 04:50 Pulse Oximetry 97 12/09/22 04:50 Oxygen Delivery Method Room Air 12/09/22 04:50 Const General: cooperative, comfortable and No ill appearing HENMT Head: normal to inspection and normocephalic Ears: TM normal on the left and TM abnormal bulging on the right Resp Effort & Inspection: normal respiratory effort Auscultation: clear to auscultation bilaterally Cardio Rate: regular rate Rhythm: regular rhythm GI Inspection: normal to inspection and non-distended Palpation: soft, No firm and No tender Auscultation: normal bowel sounds Skin General: no rashes or lesions noted Neuro General: patient alert, patient awake and moves all extremities Extrem General: capillary refill normal Course Orders Ordered: ED Orders 12/09/22 04:59 XR chest 1V Stat 12/09/22 05:00 Covid-19 + FLU A/B + RSV - PCR Stat 12/09/22 06:05 Urine Culture Stat Urine Microscopic Stat Discontinued Medications Ondansetron HCl (Ondansetron 4 Mg Odt) 4 mg SL NOW ONE Stop: 12/09/22 05:00 Last Admin: 12/09/22 05:08 Dose: 4 mg Documented By: PRASAD Vital Signs Vital signs: Vital Signs - 8 hr 12/09/22 04:50 Temperature 98 F Pulse Rate 87 Respiratory Rate 17 Blood Pressure 150/68 H Pulse Oximetry 97 Oxygen Delivery Method Room Air Medical Decision Making Lab Data Lab results reviewed: Yes I reviewed the patient's lab results. Labs: Lab Results 12/09/22 Range/Units 05:00 SARS-CoV-2 (PCR) Negative (Negative) Influenza A (RT-PCR) Flu a negative (NEGATIVE) Influenza B (RT-PCR) Flu b negative (NEGATIVE) RSV (PCR) Negative (Negative) Urine Dip Bedside Urine Glucose Negative Bedside Urine Bilirubin - Negative Bedside Urine Ketone - Negative Urine Specific [place] 1.010 Bedside Urine Occult Blood +++ Bedside Urine pH 7 Bedside Urine Protein - Negative Bedside Urine Urobilinogen - Negative Bedside Urine Nitrite - Negative Bedside Urine Leukocytes - Negative Esterase Point of care testing: Urine Dip Bedside Urine Glucose Negative Bedside Urine Bilirubin - Negative Bedside Urine Ketone - Negative Urine Specific [place] 1.010 Bedside Urine Occult Blood +++ Bedside Urine pH 7 Bedside Urine Protein - Negative Bedside Urine Urobilinogen - Negative Bedside Urine Nitrite - Negative Bedside Urine Leukocytes - Negative Esterase Imaging Data Chest x-ray: Radiologist's Impression: Early infiltrate within the right middle lobe. [facility] Narrative Medical decision making narrative: No respiratory distress. Patient did have a bowel movement she stated her abdominal discomfort has improved. Urinalysis is unremarkable. Chest x-ray shows what appears to be a early infiltrate on the right. Will start on antibiotics. Not hypoxic. No indication for admission in the hospital. She was given return precautions. She expressed understanding and agreement. Discharge Plan Departure Patient Disposition: Home Clinical Impression: Pneumonia Instructions: DI for Pneumonia -- Adult Activity Restrictions/Additional Instructions: You can take all of your medications as directed. 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 Return to the emergency department for any new or worsening symptoms. Prescriptions: New azithromycin 250 mg tablet See Rx Instructions .ROUTE .COMPLEX Qty: 6 0RF Rx Instructions: For 250 mg dose pack: take 500 mg today (day 1), then 250 mg for 4 days (days 2-5) ondansetron 4 mg tablet,disintegrating 4 mg PO Q6H PRN (Reason: nausea and vomiting) Qty: 14 0RF No Action carvedilol 3.125 mg tablet 3.125 mg PO BID Qty: 180 3RF Rx Instructions: must administer with a meal/food pravastatin 10 mg tablet 10 mg PO BEDTIME Qty: 90 3RF calcium-magnesium 300-300 mg Tablet 1 tab PO DAILY cholecalciferol (vitamin D3) [Vitamin D3] 1,000 unit Capsule 2,000 unit PO DAILY Complete [place] 700-1,500 mg-mg Capsule 1 cap PO DAILY Referrals: Wilbert Becerra MD [Primary Care Provider] - Stand Alone Forms: Patient Portal/API
[2022-12-09] MEDS: ONDANSETRON 4 MG ODT SL (05:08)
[2022-12-09 05:47] LABS: Influenza A - CEPHEID Flu A NEGATIVE (NEGATIVE); Influenza B - CEPHEID Flu B NEGATIVE (NEGATIVE); Respiratory Syncytial Virus Negative (Negative)
[2022-12-09 05:50] LABS: COVID-19 CEPHEID 4-PLEX PCR Negative (Negative)
[2022-12-09 06:27] LABS: Amorphous Sediment Urine 1+; Bacteria Urine Few (2-10); RBC Urine 10-30/HPF (0-5/HPF); Squamous Epithelial Cell Urine 1-5 /HPF (0-5/HPF); WBC Urine 0-1/HPF (0-5/HPF)
[2022-12-09 06:28] LABS: Hyaline Casts Urine 5-10/LPF; Mucus Urine 1+ (Negative)
[2022-12-09 06:33] VITALS: BP 148/64; PULSE 74; RESP 18; O2SAT 95
== END 2022-12-09 06:37 | disposition home or self-care (01) ==
PROVIDERS: Emergency Provider Emergency Medicine; Family Provider Family Medicine; PCP Internal Medicine
DX: J18.9 Pneumonia, unspecified organism (principal); Z20.822 Contact with and (suspected) exposure to COVID-19
CPT/HCPCS: 0241U; 71045; 81003; 81015; 87086; 99283

== ENCOUNTER 2023-08-09 19:25 | Emergency (ER) | payer MEDICARE, BC, SELFPAY ==
[2023-08-09 19:54] VITALS: BP 183/87; PULSE 76; RESP 18; TEMP 36.6; O2SAT 98; BMI 19.1
--- NOTE | 2023-08-09 20:02 | DI.RAD.S_ITS ---
PROCEDURE: XR CHEST 1V INDICATIONS: chest pain TECHNIQUE: One view of the chest was acquired. COMPARISON: [facility], CR, XR CHEST 1V, 12/09/2022, 5:04. FINDINGS: Surgical changes and devices: None. Lungs and pleura: Lungs are clear. No pleural effusions or pneumothorax. Mediastinum: Mediastinal contours appear normal. Heart size is normal. Bones and chest wall: No suspicious bony lesions. Overlying soft tissues appear unremarkable. IMPRESSION: No acute cardiopulmonary pathology. Dictated by: Jad Mauro M.D. on 08/09/2023 at 21:11 Approved by: Jda Mauro M.D. on 08/09/2023 at 21:14
[2023-08-09 20:44] LABS: Prothrombin Time 11.3 SECONDS (10.1-12.7)
[2023-08-09 20:46] LABS: Add Manual Diff / Slide Review NO; Basophils Absolute Auto 100 /uL (0-100); Basophils Percent Auto 1.4 % (0-2); Eosinophils Absolute Auto 100 /uL (0-450); Eosinophils Percent Auto 2.6 % (2-4); Hematocrit 44.3 % (36-46); Hemoglobin 15.1 g/dL (12.0-16.0); Lymphocytes Absolute Auto 2000 /uL (1100-4500); Lymphocytes Percent Auto 37.1 % (25-40); Mean Corpuscular HGB Conc 34.1 % (30-36); Mean Corpuscular Hemoglobin 33.6 PG (26-34); Mean Corpuscular Volume 98.4 fL (80-100); Monocytes Absolute Auto 600 /uL (0-900); Monocytes Percent Auto 10.8 % (3-14); Neutrophils Absolute Auto 2600 /uL (1500-7000); Neutrophils Percent Auto 48.1 % (50-75); PTT Partial Thromboplastin Tim 29 SECONDS (26-36); Platelet Count 258 X10^3/uL (150-400); Red Cell Distribution Width 13.4 % (11.6-14.8); White Blood Cell Count 5.3 X10^3/uL (4.5-11.0)
[2023-08-09 20:49] LABS: Alanine Aminotransferase 17 IU/L (<35); Albumin 4.3 g/dL (3.5-5.0); Albumin Globulin Ratio 1.4 (1.0-2.8); Alkaline Phosphatase 50 U/L (38-126); Aspartate Aminotransferase 22 IU/L (14-36); BUN Creatinine Ratio 21.1 (6-22); Bilirubin Total 0.6 mg/dL (0.2-1.3); Blood Urea Nitrogen 16 mg/dL (7-17); Calcium 10.1 mg/dL (8.4-10.2); Carbon Dioxide 27 mmol/L (22-32); Chloride 101 mmol/L (98-107); Creatine Kinase 35 U/L (30-135); Estimated Glomerular Filt Rate > 60 mL/min (>60); Glucose 110 mg/dL (80-110); HEMOLYSIS < 15 (0-50); Lipase 101 U/L (23-300); Magnesium 2.1 mg/dL (1.6-2.3); Sodium 137 mmol/L (137-145); Total Protein 7.3 g/dL (6.3-8.2)
[2023-08-09 20:59] LABS: Troponin I < 0.012 ng/mL (0.01-0.034)
[2023-08-09 21:49] VITALS: PULSE 64; O2SAT 97
[2023-08-09 22:00] VITALS: BP 164/74; PULSE 59; RESP 13; O2SAT 97
[2023-08-09 22:24] LABS: Influenza A - CEPHEID Flu A NEGATIVE (NEGATIVE); Influenza B - CEPHEID Flu B NEGATIVE (NEGATIVE); Respiratory Syncytial Virus Negative (Negative)
[2023-08-09 22:28] LABS: COVID-19 CEPHEID 4-PLEX PCR Negative (Negative)
[2023-08-09 22:30] VITALS: BP 146/70; PULSE 60; RESP 15; O2SAT 97
--- NOTE | 2023-08-09 22:38 | ED.GENADULT ---
HPI - General Adult General Chief complaint: Hypertension Stated complaint: HBP, not feeling normal Time Seen by Provider: 08/09/23 22:38 Source: patient Mode of arrival: Ambulatory History of Present Illness HPI narrative: Patient is a 72-year-old female who presents today with abdominal pain and elevated blood pressure. She reports that she having little bit of an upset stomach earlier today. She was able to keep down some soup and some other food. But then was having some abdominal cramping. She is not had anymore further abdominal cramping no nausea. No chest pain or shortness of breath. She took her blood pressure at home and noticed it was 170 continue to be elevated and so she came to the ED. show blood pressure 183/87 which has not improved during her stay here. She is overall feeling better after waiting for couple of hours here in the emergency department. Related Data Home Medications Medication Instructions Recorded Confirmed calcium-magnesium 300 mg-300 mg 1 tab PO DAILY 06/20/19 11/23/22 tablet cholecalciferol (vitamin D3) 25 2,000 unit PO DAILY 06/20/19 11/23/22 mcg (1,000 unit) capsule (Vitamin D3) omega 3,5,6,7,9 combination no.1 1 cap PO DAILY 06/20/19 11/23/22 700 mg-salmon oil 1,500 mg capsule (Complete [place]) Previous Rx's Medication Instructions Recorded carvedilol 3.125 mg tablet 3.125 mg PO BID #180 tabs 08/19/22 pravastatin 10 mg tablet 10 mg PO BEDTIME #90 tabs 11/23/22 azithromycin 250 mg tablet See Rx Instructions PO .COMPLEX #6 12/09/22 tabs ondansetron 4 mg disintegrating 4 mg PO Q6H PRN nausea and 12/09/22 tablet vomiting #14 tabs Allergies Allergy/AdvReac Type Severity Reaction Status Date / Time naproxen [NAPROXEN] AdvReac Severe LIGHTHEADED, Verified 11/23/22 14:58 INTERNAL BLEEDING rosuvastatin AdvReac Severe Joint pain Verified 11/23/22 14:58 amlodipine AdvReac Intermediate Nausea Verified 11/23/22 14:58 losartan AdvReac Intermediate Dizziness Verified 11/23/22 14:58 Patient History Medical History Advanced directives, counseling/discussion Age-related osteoporosis without current pathological fracture Ambulates with cane Bursitis of left hip Essential hypertension GI bleed due to NSAIDs Medicare annual wellness visit, initial Mixed hyperlipidemia Social History details: (Sreedhar) Smoking Status: Never smoker Smoking Status: Never smoker alcohol intake frequency: holidays/special occasions only Substance Use Type: does not use Exam Initial Vital Signs Initial Vital Signs: Vital Signs Temperature 97.8 F 08/09/23 19:54 Pulse Rate 76 08/09/23 19:54 Respiratory Rate 18 08/09/23 19:54 Blood Pressure 183/87 H 08/09/23 19:54 Pulse Oximetry 98 08/09/23 19:54 Oxygen Delivery Method Room Air 08/09/23 19:54 GENERAL: Alert 72-year-old female and in no acute distress. HEENT: Head atraumatic,EOMI, pupils reactive, face symmetric, moist mucous membranes CARDIOVASCULAR: Regular rate and rhythm without murmurs, rubs or gallops. RESPIRATORY: Breath sounds equal bilaterally, no wheezes rales or rhonchi. ABDOMEN: Soft, nontender. Normoactive bowel sounds all 4 quadrants. No guarding or rebound. EXTREMITIES: Normal range of motion, no clubbing or edema. Neurovascularly intact NEUROLOGICAL: Alert and oriented x4.Normal gait and speech. SKIN: Warm, dry, no laceration, no petechiae, no rashes or lesions. Course Orders Ordered: ED Orders 08/09/23 20:02 XR chest 1V Stat EKG-12 Lead Stat 08/09/23 20:24 Complete Blood Count AUTO DIFF Stat Comprehensive Metabolic Panel Stat Lipase Stat Magnesium Stat PTT Partial Thromboplastin Taran Stat Prothrombin Time INR Stat Troponin & CK Cardiac Panel Stat 08/09/23 21:04 Urine Microscopic Stat 08/09/23 21:42 Covid-19 + FLU A/B + RSV - PCR Stat 08/09/23 22:23 Trop I [Troponin I] Stat Vital Signs Vital signs: Vital Signs - 8 hr 08/09/23 19:54 08/09/23 21:49 08/09/23 22:00 Temperature 97.8 F Pulse Rate 76 64 59 L Respiratory Rate 18 13 Blood Pressure 183/87 H Pulse Oximetry 98 97 97 Oxygen Delivery Method Room Air Room Air 08/09/23 22:00 08/09/23 22:30 08/09/23 22:30 Temperature Pulse Rate 60 Respiratory Rate 15 Blood Pressure 164/74 H 146/70 H Pulse Oximetry 97 Oxygen Delivery Method Room Air 08/09/23 23:00 08/09/23 23:00 08/09/23 23:25 Temperature 97.7 F Pulse Rate 56 L Respiratory Rate 16 Blood Pressure 156/70 H Pulse Oximetry 97 Oxygen Delivery Method Room Air Medical Decision Making Lab Data 08/09/23 20:24 08/09/23 20:24 Labs: Lab Results 08/09/23 08/09/23 08/09/23 Range/Units 20:24 21:04 21:42 WBC 5.3 (4.5-11.0) X10^3/uL RBC 4.50 (4.0-5.2) X10^6/uL Hgb 15.1 (12.0-16.0) g/dL Hct 44.3 (36-46) % MCV 98.4 (80-100) fL MCH 33.6 (26-34) PG MCHC 34.1 (30-36) % RDW 13.4 (11.6-14.8) % Plt Count 258 (150-400) X10^3/uL Neut % (Auto) 48.1 L (50-75) % Lymph % (Auto) 37.1 (25-40) % [place] % (Auto) 10.8 (3-14) % Eos % (Auto) 2.6 (2-4) % Baso % (Auto) 1.4 (0-2) % Neut # (Auto) 2600 (9423-6895) /uL Lymph # (Auto) 2000 (2314-5464) /uL [place] # (Auto) 600 (0-900) /uL Eos # (Auto) 100 (0-450) /uL Baso # (Auto) 100 (0-100) /uL PT 11.3 (10.1-12.7) SECONDS INR 1.0 (0.9-1.3) APTT 29 (26-36) SECONDS Sodium 137 (137-145) mmol/L Potassium 4.0 (3.4-5.1) mmol/L Chloride 101 (98-107) mmol/L Carbon Dioxide 27 (22-32) mmol/L BUN 16 (7-17) mg/dL Creatinine 0.76 (0.52-1.04) mg/dL Estimated GFR > 60 (>60) mL/min BUN/Creatinine Ratio 21.1 (6-22) Glucose 110 (80-110) mg/dL Calcium 10.1 (8.4-10.2) mg/dL Magnesium 2.1 (1.6-2.3) mg/dL Total Bilirubin 0.6 (0.2-1.3) mg/dL AST 22 (14-36) IU/L ALT 17 (<35) IU/L Alkaline Phosphatase 50 (38-126) U/L Total Creatine Kinase 35 (30-135) U/L Troponin I < 0.012 (0.01-0.034) ng/mL Total Protein 7.3 (6.3-8.2) g/dL Albumin 4.3 (3.5-5.0) g/dL Globulin 3.0 (1.7-4.1) g/dL Albumin/Globulin Ratio 1.4 (1.0-2.8) Lipase 101 (23-300) U/L Urine RBC None seen (0-5/HPF) Urine WBC None seen (0-5/HPF) Ur Squamous Epith Cells None seen (0-5/HPF) Urine Bacteria None seen (None) Ur Culture Indicated? Cult not indicated SARS-CoV-2 (PCR) Negative (Negative) Influenza A (RT-PCR) Flu a negative (NEGATIVE) Influenza B (RT-PCR) Flu b negative (NEGATIVE) RSV (PCR) Negative (Negative) 08/09/23 Range/Units 22:23 WBC (4.5-11.0) X10^3/uL RBC (4.0-5.2) X10^6/uL Hgb (12.0-16.0) g/dL Hct (36-46) % MCV (80-100) fL MCH (26-34) PG MCHC (30-36) % RDW (11.6-14.8) % Plt Count (150-400) X10^3/uL Neut % (Auto) (50-75) % Lymph % (Auto) (25-40) % [place] % (Auto) (3-14) % Eos % (Auto) (2-4) % Baso % (Auto) (0-2) % Neut # (Auto) (8126-7524) /uL Lymph # (Auto) (8500-5057) /uL [place] # (Auto) (0-900) /uL Eos # (Auto) (0-450) /uL Baso # (Auto) (0-100) /uL PT (10.1-12.7) SECONDS INR (0.9-1.3) APTT (26-36) SECONDS Sodium (137-145) mmol/L Potassium (3.4-5.1) mmol/L Chloride (98-107) mmol/L Carbon Dioxide (22-32) mmol/L BUN (7-17) mg/dL Creatinine (0.52-1.04) mg/dL Estimated GFR (>60) mL/min BUN/Creatinine Ratio (6-22) Glucose (80-110) mg/dL Calcium (8.4-10.2) mg/dL Magnesium (1.6-2.3) mg/dL Total Bilirubin (0.2-1.3) mg/dL AST (14-36) IU/L ALT (<35) IU/L Alkaline Phosphatase (38-126) U/L Total Creatine Kinase (30-135) U/L Troponin I < 0.012 (0.01-0.034) ng/mL Total Protein (6.3-8.2) g/dL Albumin (3.5-5.0) g/dL Globulin (1.7-4.1) g/dL Albumin/Globulin Ratio (1.0-2.8) Lipase (23-300) U/L Urine RBC (0-5/HPF) Urine WBC (0-5/HPF) Ur Squamous Epith Cells (0-5/HPF) Urine Bacteria (None) Ur Culture Indicated? SARS-CoV-2 (PCR) (Negative) Influenza A (RT-PCR) (NEGATIVE) Influenza B (RT-PCR) (NEGATIVE) RSV (PCR) (Negative) Urine Dip Bedside Urine Glucose Negative Bedside Urine Bilirubin - Negative Bedside Urine Ketone - Negative Urine Specific Tensed 1.005 Bedside Urine Occult Blood + Bedside Urine pH 6.0 Bedside Urine Protein - Negative Bedside Urine Urobilinogen - Negative Bedside Urine Nitrite - Negative Bedside Urine Leukocytes + 70 Esterase Point of care testing: Urine Dip Bedside Urine Glucose Negative Bedside Urine Bilirubin - Negative Bedside Urine Ketone - Negative Urine Specific Tensed 1.005 Bedside Urine Occult Blood + Bedside Urine pH 6.0 Bedside Urine Protein - Negative Bedside Urine Urobilinogen - Negative Bedside Urine Nitrite - Negative Bedside Urine Leukocytes + 70 Esterase Imaging Data Chest x-ray: Radiologist's Impression: PROCEDURE: XR CHEST 1V INDICATIONS: chest pain TECHNIQUE: One view of the chest was acquired. COMPARISON: [facility], CR, XR CHEST 1V, 12/09/2022, 5:04. FINDINGS: Surgical changes and devices: None. Lungs and pleura: Lungs are clear. No pleural effusions or pneumothorax. Mediastinum: Mediastinal contours appear normal. Heart size is normal. Bones and chest wall: No suspicious bony lesions. Overlying soft tissues appear unremarkable. IMPRESSION: No acute cardiopulmonary pathology. Dictated by: Jad Mauro M.D. on 08/09/2023 at 21:11 ECG Data Interpretation: Sinus rhythm rate 64 SC interval 164, QRS 80 QTC [address] changes MDM Narrative Medical decision making narrative: Patient 72-year-old female history of hypertension presenting today with some abdominal discomfort and elevated blood pressure readings at home. She is no longer having any symptoms. She has no abdominal pain. Abdomen soft nontender no need for imaging. Blood work has been reviewed and overall reassuring without leukocytosis electrolyte abnormality kidney dysfunction. Her blood pressure was elevated but no evidence of end-organ damage. At this time recommend blood pressure monitoring at home and discussing with her primary care provider. Discharge Plan Departure Patient Disposition: Home Clinical Impression: Abdominal pain Instructions: DI for High Blood Pressure, DI for Abdominal Pain-Adult Activity Restrictions/Additional Instructions: *You have been diagnosed with abdominal pain *What to do: At this time blood work is reassuring. Please check your blood pressure 1 or 2 times day record it and talk with your primary care provider about if you need adjustment *Continue to take medications as directed *Follow up with your primary care provider in 2-3 days or call [phone] *Return to ER if you should have increasing abdominal pain chest pain or shortness of breath or any new, worsening or concerning symptoms Prescriptions: No Action carvedilol 3.125 mg tablet 3.125 mg PO BID Qty: 180 3RF Rx Instructions: must administer with a meal/food pravastatin 10 mg tablet 10 mg PO BEDTIME Qty: 90 3RF calcium-magnesium 300-300 mg Tablet 1 tab PO DAILY cholecalciferol (vitamin D3) [Vitamin D3] 1,000 unit Capsule 2,000 unit PO DAILY Complete [place] 700-1,500 mg-mg Capsule 1 cap PO DAILY azithromycin 250 mg tablet See Rx Instructions .ROUTE .COMPLEX Qty: 6 0RF Rx Instructions: For 250 mg dose pack: take 500 mg today (day 1), then 250 mg for 4 days (days 2-5) ondansetron 4 mg tablet,disintegrating 4 mg PO Q6H PRN (Reason: nausea and vomiting) Qty: 14 0RF Referrals: Wilbert Becerra MD [Primary Care Provider] - Stand Alone Forms: Patient Portal/API
[2023-08-09 22:59] LABS: Troponin I < 0.012 ng/mL (0.01-0.034)
[2023-08-09 23:00] VITALS: BP 156/70; PULSE 56; RESP 16; O2SAT 97
[2023-08-09 23:12] LABS: Bacteria Urine None Seen; Culture Indicated Urine Cult Not Indicated; RBC Urine None Seen (0-5/HPF); Squamous Epithelial Cell Urine None Seen (0-5/HPF); WBC Urine None Seen (0-5/HPF)
[2023-08-09 23:25] VITALS: TEMP 36.5
== END 2023-08-09 23:25 | disposition home or self-care (01) ==
PROVIDERS: Emergency Provider Emergency Medicine; Family Provider Family Medicine; PCP Internal Medicine
DX: R10.9 Unspecified abdominal pain (principal); R07.9 Chest pain, unspecified; Z20.822 Contact with and (suspected) exposure to COVID-19
CPT/HCPCS: 0241U; 36415; 71045; 80053; 81003; 81015; 82550; 83690; 83735; 84484; 85025; 85610; 85730; 93005; 99284

== ENCOUNTER → 2023-08-16 13:14 | Outpatient (CLI) | payer MEDICARE, BC, SELFPAY ==
--- NOTE | 2023-08-16 13:15 | DI.RAD.S_ITS ---
PROCEDURE: XR ABDOMEN MIN 2V INDICATIONS: no BM x 4 days TECHNIQUE: 2 views of the abdomen were acquired. COMPARISON: None. FINDINGS: Surgical changes and devices: Left femoral pin fixation. Bowel: No pneumoperitoneum. The bowel gas pattern is normal. Mild scattered stool. Soft tissues: No masses; visualized solid organ contours appear normal in size. No suspicious abdominal calcifications. Bones: No suspicious bony abnormalities. IMPRESSION: Unremarkable exam. Mild scattered stool. Dictated by: Jaqueline Thomas M.D. on 08/16/2023 at 14:41 Approved by: Jaqueline Thomas M.D. on 08/16/2023 at 14:41
== END ==
PROVIDERS: Family Provider Family Medicine; PCP Internal Medicine; Referring Provider Student in an Organized Health Care Education/Training Program; Visit Provider Student in an Organized Health Care Education/Training Program
DX: K59.00 Constipation, unspecified (principal)
CPT/HCPCS: 74019

== ENCOUNTER → 2023-09-22 10:56 | Outpatient (CLI) | payer MEDICARE, BC, SELFPAY ==
[2023-09-22 11:39] LABS: Influenza A - CEPHEID Flu A NEGATIVE (NEGATIVE); Influenza B - CEPHEID Flu B NEGATIVE (NEGATIVE); Respiratory Syncytial Virus Negative (Negative)
[2023-09-22 12:23] LABS: COVID-19 CEPHEID 4-PLEX PCR Negative (Negative)
== END ==
PROVIDERS: Family Provider Family Medicine; PCP Internal Medicine; Visit Provider Student in an Organized Health Care Education/Training Program
DX: R05.1 Acute cough (principal)
CPT/HCPCS: 0241U

== ENCOUNTER → 2023-12-02 08:39 | Outpatient (CLI) | payer MEDICARE, BC, SELFPAY ==
[2023-12-02 09:37] LABS: Alanine Aminotransferase 14 IU/L (<35); Albumin 3.9 g/dL (3.5-5.0); Albumin Globulin Ratio 1.5 (1.0-2.8); Alkaline Phosphatase 45 U/L (38-126); Aspartate Aminotransferase 19 IU/L (14-36); BUN Creatinine Ratio 20.3 (6-22); Bilirubin Total 0.9 mg/dL (0.2-1.3); Blood Urea Nitrogen 13 mg/dL (7-17); Calcium 9.9 mg/dL (8.4-10.2); Carbon Dioxide 27 mmol/L (22-32); Chloride 104 mmol/L (98-107); Cholesterol 208 mg/dL (140-199); Estimated Glomerular Filt Rate > 60 mL/min (>60); Globulin 2.6 g/dL (1.7-4.1); Glucose 98 mg/dL (80-110); HDL Cholesterol 69 mg/dL (40-60); HEMOLYSIS < 15 (0-50); LDL Cholesterol Calculated 117 mg/dL (<100); Potassium 4.4 mmol/L (3.4-5.1); Sodium 134 mmol/L (137-145); Total Protein 6.5 g/dL (6.3-8.2); Triglycerides 109 mg/dL (35-150)
[2023-12-02 10:04] LABS: TSH w/ Reflex to FT4 2.87 uIU/mL (0.47-4.68)
[2023-12-03 10:30] LABS: Varicella IgG Antibody 1623 index (Immune >165)
== END ==
PROVIDERS: Family Provider Family Medicine; PCP Internal Medicine; Referring Provider Internal Medicine; Visit Provider Internal Medicine
DX: E78.2 Mixed hyperlipidemia (principal); I10 Essential (primary) hypertension; Z20.9 Contact with and (suspected) exposure to unspecified communicable disease
CPT/HCPCS: 36415; 80053; 80061; 84443; 86787

== ENCOUNTER 2023-12-06 17:22 | Emergency (ER) | payer MEDICARE, BC, SELFPAY ==
[2023-12-06] VITALS (14 sets, daily range): BP systolic 136–193; BP diastolic 56–81; PULSE 42–76; RESP 15–32; TEMP 36.9; O2SAT 96–98; BMI 19.4
--- NOTE | 2023-12-06 17:33 | DI.RAD.S_ITS ---
PROCEDURE: XR CHEST 1V INDICATIONS: chest pain TECHNIQUE: One view of the chest was acquired. COMPARISON: [facility], CR, XR CHEST 1V, 08/09/2023, 20:23. FINDINGS: Surgical changes and devices: None. Lungs and pleura: Bibasilar streaky opacities.. No pleural effusions or pneumothorax. Mediastinum: Mediastinal contours appear normal. Heart size is normal. Bones and chest wall: No suspicious bony lesions. Overlying soft tissues appear unremarkable. IMPRESSION: Bibasilar streaky opacities are favored to represent atelectasis. Approved by: Meme Stokes M.D. on 12/06/2023 at 18:53
--- NOTE | 2023-12-06 17:48 | PC.NURSE ---
Pt came to the ED today because she has been feeling dizzy and lightheaded and off. Pt went to infusion clinic and reports that she was advised to keep watch on her HR. Pt states that her BP has been high today while monitoring with home BP cuff and her HR has been dropping down into the low 40s. Pt denies any cp, SOB or nausea/vomiting. Pt a&ox4. Dr Samuel notified and no new orders at this time.
[2023-12-06 17:52] LABS: Add Manual Diff / Slide Review NO; Basophils Absolute Auto 100 /uL (0-100); Basophils Percent Auto 1.3 % (0-2); Eosinophils Absolute Auto 200 /uL (0-450); Eosinophils Percent Auto 2.5 % (2-4); Hematocrit 45.7 % (36-46); Hemoglobin 15.6 g/dL (12.0-16.0); Lymphocytes Absolute Auto 2200 /uL (1100-4500); Lymphocytes Percent Auto 33.8 % (25-40); Mean Corpuscular Hemoglobin 33.6 PG (26-34); Mean Corpuscular Volume 98.7 fL (80-100); Monocytes Absolute Auto 700 /uL (0-900); Monocytes Percent Auto 10.9 % (3-14); Neutrophils Absolute Auto 3400 /uL (1500-7000); Neutrophils Percent Auto 51.5 % (50-75); Platelet Count 254 X10^3/uL (150-400); Red Blood Cell Count 4.63 X10^6/uL (4.0-5.2); Red Cell Distribution Width 13.6 % (11.6-14.8); White Blood Cell Count 6.6 X10^3/uL (4.5-11.0)
[2023-12-06 17:57] LABS: INR 0.9 (0.9-1.3); Prothrombin Time 10.7 SECONDS (9.4-12.5)
[2023-12-06 18:00] LABS: PTT Partial Thromboplastin Tim 28 SECONDS (25.1-36.5)
[2023-12-06 18:02] LABS: Alanine Aminotransferase 16 IU/L (<35); Albumin 4.5 g/dL (3.5-5.0); Albumin Globulin Ratio 1.4 (1.0-2.8); Alkaline Phosphatase 62 U/L (38-126); Aspartate Aminotransferase 22 IU/L (14-36); BUN Creatinine Ratio 18.3 (6-22); Bilirubin Total 0.6 mg/dL (0.2-1.3); Blood Urea Nitrogen 11 mg/dL (7-17); Calcium 9.9 mg/dL (8.4-10.2); Carbon Dioxide 26 mmol/L (22-32); Chloride 103 mmol/L (98-107); Creatine Kinase 34 U/L (30-135); Estimated Glomerular Filt Rate > 60 mL/min (>60); Globulin 3.2 g/dL (1.7-4.1); Glucose 139 mg/dL (80-110); HEMOLYSIS < 15 (0-50); Lipase 94 U/L (23-300); Potassium 3.8 mmol/L (3.4-5.1); Sodium 136 mmol/L (137-145); Total Protein 7.7 g/dL (6.3-8.2)
--- NOTE | 2023-12-06 18:08 | ED_ITS ---
HPI - Arrhythmia/Palpitations General Chief Complaint: Arrhythmia/Palpitations Stated Complaint: low pulse rate (40's) Time Seen by Provider: 12/06/23 18:07 Source: patient Mode of arrival: Ambulatory History of Present Illness HPI narrative: 73-year-old woman with a history of hypertension, hyperlipidemia, having a Reclast infusion for her osteoporosis today at the infusion clinic, was told to keep an eye on her heart rate and comes to the emergency department with bradycardia feeling lightheaded without any chest pain or dyspnea. Patient has a home automated blood cuff monitor that was showing heart rates in the 30s and 40s. She comes in for further evaluation. She does not note exertional dyspnea, worsening fatigue, has not had any recent fevers, cough, chills, vomiting, diarrhea, abdominal pain Related Data Home Medications Medication Instructions Recorded Confirmed calcium-magnesium 300 mg-300 mg 1 tab PO DAILY 06/20/19 11/30/23 tablet cholecalciferol (vitamin D3) 25 2,000 unit PO DAILY 06/20/19 11/30/23 mcg (1,000 unit) capsule (Vitamin D3) omega 3,5,6,7,9 combination no.1 1 cap PO DAILY 06/20/19 11/30/23 700 mg-salmon oil 1,500 mg capsule (Complete [place]) Previous Rx's Medication Instructions Recorded carvedilol 3.125 mg tablet 3.125 mg PO BID #180 tabs 08/15/23 pravastatin 10 mg tablet 10 mg PO BEDTIME #90 tabs 11/30/23 Allergies Allergy/AdvReac Type Severity Reaction Status Date / Time naproxen [NAPROXEN] AdvReac Severe LIGHTHEADED, Verified 12/06/23 17:26 INTERNAL BLEEDING rosuvastatin AdvReac Severe Joint pain Verified 12/06/23 17:26 amlodipine AdvReac Intermediate Nausea Verified 12/06/23 17:26 losartan AdvReac Intermediate Dizziness Verified 12/06/23 17:26 Review of Systems Review of Systems Narrative: Pertinent positive and negative findings as per HPI Patient History Medical History Age-related osteoporosis without current pathological fracture Mixed hyperlipidemia Essential hypertension Ambulates with cane Bursitis of left hip GI bleed due to NSAIDs Social History details: (Sreedhar) Smoking Status: Never smoker Smoking Status: Never smoker alcohol intake frequency: holidays/special occasions only Substance Use Type: does not use Exam Initial Vital Signs Initial Vital Signs: Vital Signs Temperature 98.5 F 12/06/23 17:26 Pulse Rate 42 L 12/06/23 17:26 Respiratory Rate 15 12/06/23 17:26 Blood Pressure 193/81 H 12/06/23 17:26 Pulse Oximetry 97 12/06/23 17:26 Oxygen Delivery Method Room Air 12/06/23 17:26 General: Healthy appearing, in no acute distress. Able to give a complete and coherent history. Well-nourished well-developed HEENT: Moist mucous membranes, normal sclera with reactive pupils, Neck: No JVD, supple Respiratory: Lungs are clear to auscultation, no wheezing no rales no rhonchi. Full and symmetrical air movement Cardiac: Regular rate and rhythm no murmurs no bruits Abdomen: Soft, nontender, good bowel tones, no flank pain Skin: Warm and dry, no rashes Neurologic: Grossly neurologically intact with no obvious asymmetries or abnormalities Extremities: No trauma, well perfused Psych: Cooperative, appropriate insight and affect Course Orders Ordered: ED Orders 12/06/23 17:33 XR chest 1V Stat EKG-12 Lead Stat 12/06/23 17:45 Complete Blood Count AUTO DIFF Stat Comprehensive Metabolic Panel Stat Lipase Stat Magnesium Stat PTT Partial Thromboplastin Taran Stat Prothrombin Time INR Stat Troponin & CK Cardiac Panel Stat Vital Signs Vital signs: Vital Signs - 8 hr 12/06/23 17:26 12/06/23 17:46 12/06/23 17:47 Temperature 98.5 F Pulse Rate 42 L 76 Respiratory Rate 15 16 Blood Pressure 193/81 H 163/76 H Pulse Oximetry 97 98 Oxygen Delivery Method Room Air 12/06/23 17:47 12/06/23 17:50 12/06/23 17:50 Temperature Pulse Rate 73 76 Respiratory Rate 19 Blood Pressure 163/73 H Pulse Oximetry 98 97 Oxygen Delivery Method 12/06/23 17:51 12/06/23 17:51 12/06/23 18:00 Temperature Pulse Rate 76 69 Respiratory Rate 24 24 Blood Pressure 154/69 H Pulse Oximetry 97 97 Oxygen Delivery Method 12/06/23 18:00 12/06/23 18:10 12/06/23 18:10 Temperature Pulse Rate 66 Respiratory Rate 22 Blood Pressure 144/56 H 136/62 Pulse Oximetry 96 Oxygen Delivery Method 12/06/23 18:18 12/06/23 18:18 12/06/23 18:20 Temperature Pulse Rate 67 66 Respiratory Rate 23 22 Blood Pressure 165/72 H Pulse Oximetry 98 98 Oxygen Delivery Method 12/06/23 18:20 Temperature Pulse Rate Respiratory Rate Blood Pressure 160/73 H Pulse Oximetry Oxygen Delivery Method MDM - Arrhythmia/Palpitations Lab Data 12/06/23 17:45 12/06/23 17:45 Labs: Lab Results 12/06/23 Range/Units 17:45 WBC 6.6 (4.5-11.0) X10^3/uL RBC 4.63 (4.0-5.2) X10^6/uL Hgb 15.6 (12.0-16.0) g/dL Hct 45.7 (36-46) % MCV 98.7 (80-100) fL MCH 33.6 (26-34) PG MCHC 34.0 (30-36) % RDW 13.6 (11.6-14.8) % Plt Count 254 (150-400) X10^3/uL Neut % (Auto) 51.5 (50-75) % Lymph % (Auto) 33.8 (25-40) % [place] % (Auto) 10.9 (3-14) % Eos % (Auto) 2.5 (2-4) % Baso % (Auto) 1.3 (0-2) % Neut # (Auto) 3400 (3896-7305) /uL Lymph # (Auto) 2200 (0194-3431) /uL [place] # (Auto) 700 (0-900) /uL Eos # (Auto) 200 (0-450) /uL Baso # (Auto) 100 (0-100) /uL PT 10.7 (9.4-12.5) SECONDS INR 0.9 (0.9-1.3) APTT 28 (25.1-36.5) SECONDS Sodium 136 L (137-145) mmol/L Potassium 3.8 (3.4-5.1) mmol/L Chloride 103 (98-107) mmol/L Carbon Dioxide 26 (22-32) mmol/L BUN 11 (7-17) mg/dL Creatinine 0.60 (0.52-1.04) mg/dL Estimated GFR > 60 (>60) mL/min BUN/Creatinine Ratio 18.3 (6-22) Glucose 139 H (80-110) mg/dL Calcium 9.9 (8.4-10.2) mg/dL Magnesium 2.0 (1.6-2.3) mg/dL Total Bilirubin 0.6 (0.2-1.3) mg/dL AST 22 (14-36) IU/L ALT 16 (<35) IU/L Alkaline Phosphatase 62 (38-126) U/L Total Creatine Kinase 34 (30-135) U/L Troponin I < 0.012 (0.01-0.034) ng/mL Total Protein 7.7 (6.3-8.2) g/dL Albumin 4.5 (3.5-5.0) g/dL Globulin 3.2 (1.7-4.1) g/dL Albumin/Globulin Ratio 1.4 (1.0-2.8) Lipase 94 (23-300) U/L MDM Narrative Medical decision making narrative: CC: Bradycardia is indicated by home blood pressure cuff Complicating co-morbidities: Osteoporosis hypothyroidism, hyperlipidemia, hypertension Data collected from: patient, spouse Medical records reviewed: Primary care notes from November 30 reviewed Differential considered: Symptomatic bradycardia, acute coronary syndrome, thyroid abnormalities, mechanical difficulties with home blood pressure cuff Exam documented above, pertinent findings include: Entirely benign. Lab Test results independently reviewed as above. Pertinent findings: CBC is unremarkable with no evidence of acute anemia Chemistries are reassuring with normal renal and liver function TSH was checked on December 01 and is appropriate at 2.87 Troponin is unremarkable Independently reviewed EK rhythm is most likely sinus. It is 82 there frequent PVCs. No acute ischemic changes Imaging studies independently reviewed: No acute cardiopulmonary findings, no widened Treatments:With home blood pressure cuff adjusted so marker is over brachial artery it is much more appropriate and correlating with monitoring specialist. When the cough is adjusted as they had been using at home numbers are dramatically different and not representing her true physiologic state Re-evaluations: With the appropriately placed home blood pressure cuff heart rate and blood pressure are correlating with telemetry monitors and remain in the 60-70 range for heart rate with blood pressures in the 11/02/2049 range systolic Discussion: 73-year-old woman with some relative asymptomatic bradycardia noted with Reclast infusion earlier today when checking at home noted significant bradycardia and hypotension with her home blood pressure cuff. Comes in for further evaluation. Labs are entirely unremarkable, thyroid checked 3 days ago is appropriate. Troponin is within normal limits. When blood pressure cuff is appropriately positioned there is much better correlation and the noted bradycardia and hypotension has resolved. Findings reviewed with patient and her partner. Did suggest that they go ahead and change the batteries in the blood pressure cuff to make sure that it continues to function appropriately. Both are now well aware of appropriate positioning for most appropriate monitoring. Patient will be safe for discharge home Discharge Plan Departure Patient Disposition: Home Clinical Impression: Feared complaint without diagnosis Hypertension Qualifiers: Hypertension type: primary hypertension Qualified Code(s): I10 - Essential (primary) hypertension Osteoporosis Qualifiers: Osteoporosis type: unspecified Instructions: DI for High Blood Pressure Activity Restrictions/Additional Instructions: Thank you for coming in today. Your concerns were absolutely appropriate. Your workup today is unremarkable. There was no evidence of significant bradycardia, acute coronary syndrome electrolyte abnormalities or alternate explanation that would require additional workup or hospitalization. You do have an occasional early heartbeat that is not a sign of an abnormal heart rhythm or heart problem. When your home blood pressure cuff is adjusted appropriately it correlates with our telemetry monitors in the emergency department. I would recommend changing the batteries in the home blood pressure cuff just to be safe. Would also recommend paying attention to the small button that should be placed over the brachial artery, that area just to the middle part of your arm and slightly above the crease of your elbow. I recommend follow up with your primary care physician. If you find Prescriptions: No Action carvedilol 3.125 mg tablet 3.125 mg PO BID Qty: 180 3RF Rx Instructions: must administer with a meal/food pravastatin 10 mg tablet 10 mg PO BEDTIME Qty: 90 3RF calcium-magnesium 300-300 mg Tablet 1 tab PO DAILY cholecalciferol (vitamin D3) [Vitamin D3] 1,000 unit Capsule 2,000 unit PO DAILY Complete [place] 700-1,500 mg-mg Capsule 1 cap PO DAILY Referrals: Wilbert Becerra MD [Primary Care Provider] - Stand Alone Forms: Patient Portal/API
[2023-12-06 18:13] LABS: Troponin I < 0.012 ng/mL (0.01-0.034)
== END 2023-12-06 19:26 | disposition home or self-care (01) ==
PROVIDERS: Emergency Medicine; Emergency Provider Emergency Medicine; Family Provider Family Medicine; PCP Internal Medicine
DX: R42 Dizziness and giddiness (principal); I10 Essential (primary) hypertension; M81.0 Age-related osteoporosis without current pathological fracture; R00.1 Bradycardia, unspecified
CPT/HCPCS: 36415; 71045; 80053; 82550; 83690; 83735; 84484; 85025; 85610; 85730; 93005; 93010; 96365; 99283; 99284; J3489

== ENCOUNTER → 2024-01-07 18:55 | Outpatient (CLI) | payer MEDICARE, BC, SELFPAY | PROVIDERS: Family Provider Family Medicine; PCP Internal Medicine; Visit Provider Physician Assistant Surgical | DX: R30.0 Dysuria (principal) | CPT/HCPCS: 87086 ==

== ENCOUNTER 2024-11-24 04:02 | Emergency (ER) | payer MEDICARE, BC, SELFPAY ==
[2024-11-24 05:07] VITALS: BP 173/73; PULSE 83; RESP 18; TEMP 36.4; O2SAT 97; BMI 19.1
[2024-11-24 05:39] LABS: Bacteria Urine None Seen; Culture Indicated Urine Cult Not Indicated; RBC Urine 1-5/HPF (0-5/HPF); Squamous Epithelial Cell Urine 0-1 /HPF (0-5/HPF); Urine Volume 10mL (spun); WBC Urine None Seen (0-5/HPF)
--- NOTE | 2024-11-24 07:45 | ED_ITS ---
HPI - Female Genitourinary General Chief complaint: Urogenital-Female Stated complaint: Lower abdominal pain Time Seen by Provider: 11/24/24 06:50 Source: patient Mode of arrival: Ambulatory History of Present Illness HPI Narrative: Patient is a 74-year-old female history of hypertension presenting today with abdominal pain. Reports that she has had frequent urination all night and sharp stabbing abdominal discomfort. She was also having some low back pain but really denies any flank pain. Sometimes feeling nauseous but no vomiting. No fever or chills. Related Data Home Medications Medication Instructions Recorded Confirmed calcium-magnesium 300 mg-300 mg 1 tab PO DAILY 06/20/19 04/23/24 tablet cholecalciferol (vitamin D3) 25 2,000 unit PO DAILY 06/20/19 04/23/24 mcg (1,000 unit) capsule (Vitamin D3) omega 3,5,6,7,9 combination no.1 1 cap PO DAILY 06/20/19 04/23/24 700 mg-salmon oil 1,500 mg capsule (Complete Penfield) Previous Rx's Medication Instructions Recorded pravastatin 10 mg tablet 10 mg PO BEDTIME #90 tabs 11/30/23 amlodipine 2.5 mg tablet 2.5 mg PO DAILY #90 tabs 09/27/24 ciprofloxacin HCl 500 mg tablet 500 mg PO BID #14 tabs 11/24/24 (Cipro) metronidazole 500 mg tablet 500 mg PO Q8H 7 days #21 tabs 11/24/24 Allergies Allergy/AdvReac Type Severity Reaction Status Date / Time naproxen [NAPROXEN] AdvReac Severe LIGHTHEADED, Verified 04/23/24 08:48 INTERNAL BLEEDING rosuvastatin AdvReac Severe Joint pain Verified 04/23/24 08:48 amlodipine AdvReac Intermediate Nausea Verified 04/23/24 08:48 carvedilol AdvReac Intermediate bradycardia Verified 04/23/24 09:05 losartan AdvReac Intermediate Dizziness Verified 04/23/24 08:48 Patient History Medical History Generalized anxiety disorder Slow transit constipation Age-related osteoporosis without current pathological fracture Mixed hyperlipidemia Essential hypertension Ambulates with cane Bursitis of left hip GI bleed due to NSAIDs Exam Initial Vital Signs Initial Vital Signs: Vital Signs Temperature 97.5 F L 11/24/24 05:07 Pulse Rate 83 02/22/25 05:07 Respiratory Rate 18 11/24/24 05:07 Blood Pressure 173/73 H 11/24/24 05:07 Pulse Oximetry 97 11/24/24 05:07 Oxygen Delivery Method Room Air 11/24/24 05:07 GENERAL: Alert anxious 74-year-old female and in no acute distress. HEENT: Head atraumatic,EOMI, pupils reactive, face symmetric, moist mucous membranes CARDIOVASCULAR: Regular rate and rhythm without murmurs, rubs or gallops. RESPIRATORY: Breath sounds equal bilaterally, no wheezes rales or rhonchi. ABDOMEN: Soft, mild suprapubic pain no guarding no : No CVA tenderness EXTREMITIES: Normal range of motion, no clubbing or edema. Neurovascularly intact NEUROLOGICAL: Alert and oriented x4.Normal gait and speech. Cranial nerves II through XII grossly intact. SKIN: Warm, dry, no laceration, no petechiae, no rashes or lesions. Course Orders Ordered: ED Orders 11/24/24 08:00 CT kidney ureter bladder (KUB) Stat 11/24/24 08:33 CBC Auto Diff [Complete Blood Count AUTO DIFF] Stat CMP [Comprehensive Metabolic Panel] Stat Discontinued Medications Acetaminophen (Acetaminophen 325 Mg Tablet) 975 mg PO NOW ONE Stop: 11/24/24 08:37 Last Admin: 11/24/24 08:45 Dose: 975 mg Documented By: ROSALEE Ciprofloxacin (Ciprofloxacin 250 Mg Tablet) 500 mg PO NOW ONE Stop: 11/24/24 10:11 Last Admin: 11/24/24 10:16 Dose: 500 mg Documented By: ROSALEE Metronidazole (Metronidazole 500 Mg Tablet) 500 mg PO NOW ONE Stop: 11/24/24 10:11 Last Admin: 11/24/24 10:16 Dose: 500 mg Documented By: ROSALEE Vital Signs Vital signs: Vital Signs - 8 hr 11/24/24 10:12 11/24/24 10:13 11/24/24 10:13 Pulse Rate 75 77 Respiratory Rate Blood Pressure 153/70 H Pulse Oximetry 98 97 11/24/24 10:21 Pulse Rate Respiratory Rate 16 Blood Pressure Pulse Oximetry MDM - Female Genitourinary Lab Data 11/24/24 08:33 11/24/24 08:33 Labs: Lab Results 11/24/24 11/24/24 Range/Units 05:05 08:33 WBC 11.6 H (4.5-11.0) X10^3/uL RBC 4.26 (4.0-5.2) X10^6/uL Hgb 14.2 (12.0-16.0) g/dL Hct 41.7 (36-46) % MCV 97.9 (80-100) fL MCH 33.3 (26-34) PG MCHC 34.0 (30-36) % RDW 13.1 (11.6-14.8) % Plt Count 236 (150-400) X10^3/uL Neut % (Auto) 83.1 H (50-75) % Lymph % (Auto) 7.0 L (25-40) % Tillman % (Auto) 9.2 (3-14) % Eos % (Auto) 0.1 L (2-4) % Baso % (Auto) 0.6 (0-2) % Neut # (Auto) 9600 H (1137-8973) /uL Lymph # (Auto) 800 L (3412-2914) /uL Tillman # (Auto) 1100 H (0-900) /uL Eos # (Auto) 0 (0-450) /uL Baso # (Auto) 100 (0-100) /uL Sodium 133 L (137-145) mmol/L Potassium 4.0 (3.4-5.1) mmol/L Chloride 102 (98-107) mmol/L Carbon Dioxide 22 (22-32) mmol/L BUN 16 (7-17) mg/dL Creatinine 0.56 (0.52-1.04) mg/dL Estimated GFR > 60 (>60) mL/min BUN/Creatinine Ratio 28.6 H (6-22) Glucose 119 H (80-110) mg/dL Calcium 9.8 (8.4-10.2) mg/dL Total Bilirubin 0.9 (0.2-1.3) mg/dL AST 24 (14-36) IU/L ALT 17 (<35) IU/L Alkaline Phosphatase 50 (38-126) U/L Total Protein 7.0 (6.3-8.2) g/dL Albumin 4.3 (3.5-5.0) g/dL Globulin 2.7 (1.7-4.1) g/dL Albumin/Globulin Ratio 1.6 (1.0-2.8) Urine RBC 1-5/hpf (0-5/HPF) Urine WBC None seen (0-5/HPF) Ur Squamous Epith Cells 0-1 /hpf (0-5/HPF) Urine Bacteria None seen (None) Ur Culture Indicated? Cult not indicated Vol Urine Centrifuged 10ml (spun) Urine Dip Bedside Urine Glucose Negative Bedside Urine Bilirubin - Negative Bedside Urine Ketone - Negative Urine Specific [place] 1.015 Bedside Urine Occult Blood +++ Bedside Urine pH 7.5 Bedside Urine Protein - Negative Bedside Urine Urobilinogen - Negative Bedside Urine Nitrite - Negative Bedside Urine Leukocytes - Negative Esterase Imaging Data CT scan - abdomen/pelvis: Radiologist's Impression: PROCEDURE: CT KIDNEY URETER BLADDER (KUB) INDICATIONS: flank pain TECHNIQUE: Axial sections were acquired from the lung bases to the pubic symphysis. Coronal and sagittal reformats were performed. For radiation dose reduction, the following was used: automated exposure control, adjustment of mA and/or kV according to patient size. COMPARISON: [facility], CT, KIDNEY/ URETER/BLADDER, 04/05/2015, 13:15. [facility], CT, CT ABDOMEN PELVIS W CON, 06/20/2019, 20:51. FINDINGS: Image quality: Diagnostic. Lower Chest: There is a longstanding centrally liquid or necrotic structure in the medial basilar portion of the left lower lobe, the posterior basal segment, which is stable in size or very minimally slow growing. The craniocaudal dimension is stable, previously measuring 4.9 cm on prior image 32 of series 4 and currently measuring 4.8 cm in craniocaudal dimension. The transverse dimension may be slightly increased. URINARY: Right Kidney: No stones or hydronephrosis. Right Ureter: No hydroureter. Left Kidney: No stones or hydronephrosis. Left Ureter: No hydroureter. Bladder: Normal wall thickness. No stones. ABDOMEN: Liver: No contour-deforming solid mass. Stable benign right lobe of liver cystic lesion with some calcifications. Gallbladder: No radiopaque gallstones or wall thickening. Biliary ducts: No biliary dilation. Pancreas: No ductal dilation. Spleen: Size is within normal limits. Adrenal Glands: No adrenal nodules. Stomach and Bowel: Normal colonic caliber, without significant wall thickening. There is mild sigmoid diverticulitis. There is inflammatory change in the adjacent fat. There is focal significant thickening and edema of the sigmoid with a narrowed lumen seen on coronal image 56 of series 4. It is less well appreciated on axial image 100 of series 2. Recommend nonemergent colonoscopy to exclude underlying lesion. Peritoneum: No abnormal intraperitoneal fluid. No free air. Ventral Wall: No hernia. Abdominal Nodes: No enlarged retroperitoneal or mesenteric lymph nodes. Vessels: Aorta and inferior vena cava are normal in size. PELVIS: Pelvic Organs: Unremarkable. Pelvic Nodes: Unremarkable. Miscellaneous: No inguinal hernias are seen. Bones: Remote ORIF of the left femoral neck.. IMPRESSION: 1. No obstructing stones or hydronephrosis. No renal parenchymal stones. 2. Sigmoid diverticulitis. 3. Due to focal edema and circumferential thickening of the sigmoid, we would recommend nonemergent colonoscopy patient has not undergone recent colonoscopy. 4. Stable, or minimally increasing size of longstanding indolent process in the basilar portion of the left lower lobe, perhaps slightly increased in size over the course of 5+ years. Dictated by: Sameer Bernal M.D. on 11/24/2024 at 9:13 MDM Narrative Medical decision making narrative: Patient is a 74-year-old female history of hypertension presenting today with abdominal discomfort. She has had frequent urination. Urinalysis does show hematuria but no leukocytosis nitrates or bacteria. Still possible for cystitis however with severe pain discussed with her about ruling out kidney stone. She was agreeable to blood work and CT. CT does show mild diverticulitis without complication with some narrowing no nephrolithiasis Blood work has been reviewed she does mild leukocytosis 11.6 but no anemia, mild hyponatremia with a sodium of 133 otherwise electrolytes within normal limits no JUS creatinine 0.56, liver enzymes bilirubin within normal limits Patient is ambulatory in the ED she was received Tylenol for pain which does seem to help. I will treat for diverticulitis with Cipro and Flagyl. She was agreeable to this plan. I do recommend she follow up and may need further outpatient colonoscopy Discharge Plan Departure Patient Disposition: Home Clinical Impression: Diverticulitis Instructions: DI for Diverticulitis Activity Restrictions/Additional Instructions: *You have been diagnosed with diverticulitis *What to do: At this time you do have a mild case of diverticulitis. This should get better with antibiotics. However it is still recommended that you have an outpatient colonoscopy *Continue to take medications as directed Tylenol 1000 mg every 6 hours for [id number] pain Cipro 500 mg twice a day for 7 days Flagyl 500 mg 3 times a day for 7 days *Follow up with your primary care provider in 2-3 days or call [phone] *Return to ER if you should have increasing pain bloody stools vomiting [or] any new, worsening or concerning symptoms Prescriptions: New ciprofloxacin HCl [Cipro] 500 mg tablet 500 mg PO BID Qty: 14 0RF metronidazole 500 mg tablet 500 mg PO Q8H 7 Days Qty: 21 0RF No Action amlodipine 2.5 mg tablet 2.5 mg PO DAILY Qty: 90 3RF pravastatin 10 mg tablet 10 mg PO BEDTIME Qty: 90 3RF calcium-magnesium 300-300 mg Tablet 1 tab PO DAILY cholecalciferol (vitamin D3) [Vitamin D3] 1,000 unit Capsule 2,000 unit PO DAILY Complete Penfield 700-1,500 mg-mg Capsule 1 cap PO DAILY Referrals: Wilbert Becerra MD [Primary Care Provider] - Stand Alone Forms: Patient Portal/API/Survey
--- NOTE | 2024-11-24 08:00 | DI.CT.S_ITS ---
PROCEDURE: CT KIDNEY URETER BLADDER (KUB) INDICATIONS: flank pain TECHNIQUE: Axial sections were acquired from the lung bases to the pubic symphysis. Coronal and sagittal reformats were performed. For radiation dose reduction, the following was used: automated exposure control, adjustment of mA and/or kV according to patient size. COMPARISON: [facility], CT, KIDNEY/ URETER/BLADDER, 04/05/2015, 13:15. [facility], CT, CT ABDOMEN PELVIS W CON, 06/20/2019, 20:51. FINDINGS: Image quality: Diagnostic. Lower Chest: There is a longstanding centrally liquid or necrotic structure in the medial basilar portion of the left lower lobe, the posterior basal segment, which is stable in size or very minimally slow growing. The craniocaudal dimension is stable, previously measuring 4.9 cm on prior image 32 of series 4 and currently measuring 4.8 cm in craniocaudal dimension. The transverse dimension may be slightly increased. URINARY: Right Kidney: No stones or hydronephrosis. Right Ureter: No hydroureter. Left Kidney: No stones or hydronephrosis. Left Ureter: No hydroureter. Bladder: Normal wall thickness. No stones. ABDOMEN: Liver: No contour-deforming solid mass. Stable benign right lobe of liver cystic lesion with some calcifications. Gallbladder: No radiopaque gallstones or wall thickening. Biliary ducts: No biliary dilation. Pancreas: No ductal dilation. Spleen: Size is within normal limits. Adrenal Glands: No adrenal nodules. Stomach and Bowel: Normal colonic caliber, without significant wall thickening. There is mild sigmoid diverticulitis. There is inflammatory change in the adjacent fat. There is focal significant thickening and edema of the sigmoid with a narrowed lumen seen on coronal image 56 of series 4. It is less well appreciated on axial image 100 of series 2. Recommend nonemergent colonoscopy to exclude underlying lesion. Peritoneum: No abnormal intraperitoneal fluid. No free air. Ventral Wall: No hernia. Abdominal Nodes: No enlarged retroperitoneal or mesenteric lymph nodes. Vessels: Aorta and inferior vena cava are normal in size. PELVIS: Pelvic Organs: Unremarkable. Pelvic Nodes: Unremarkable. Miscellaneous: No inguinal hernias are seen. Bones: Remote ORIF of the left femoral neck.. IMPRESSION: 1. No obstructing stones or hydronephrosis. No renal parenchymal stones. 2. Sigmoid diverticulitis. 3. Due to focal edema and circumferential thickening of the sigmoid, we would recommend nonemergent colonoscopy patient has not undergone recent colonoscopy. 4. Stable, or minimally increasing size of longstanding indolent process in the basilar portion of the left lower lobe, perhaps slightly increased in size over the course of 5+ years. Dictated by: Sameer Bernal M.D. on 11/24/2024 at 9:13 Approved by: Sameer Bernal M.D. on 11/24/2024 at 9:27
[2024-11-24] MEDS: ACETAMINOPHEN 325 MG TABLET 975 MG PO (08:45)
[2024-11-24 08:46] LABS: Add Manual Diff / Slide Review NO; Basophils Absolute Auto 100 /uL (0-100); Basophils Percent Auto 0.6 % (0-2); Eosinophils Absolute Auto 0 /uL (0-450); Eosinophils Percent Auto 0.1 % (2-4); Hematocrit 41.7 % (36-46); Hemoglobin 14.2 g/dL (12.0-16.0); Lymphocytes Absolute Auto 800 /uL (1100-4500); Mean Corpuscular Hemoglobin 33.3 PG (26-34); Mean Corpuscular Volume 97.9 fL (80-100); Monocytes Absolute Auto 1100 /uL (0-900); Monocytes Percent Auto 9.2 % (3-14); Neutrophils Absolute Auto 9600 /uL (1500-7000); Neutrophils Percent Auto 83.1 % (50-75); Platelet Count 236 X10^3/uL (150-400); Red Blood Cell Count 4.26 X10^6/uL (4.0-5.2); Red Cell Distribution Width 13.1 % (11.6-14.8); White Blood Cell Count 11.6 X10^3/uL (4.5-11.0)
[2024-11-24 08:59] LABS: Alanine Aminotransferase 17 IU/L (<35); Albumin 4.3 g/dL (3.5-5.0); Albumin Globulin Ratio 1.6 (1.0-2.8); Alkaline Phosphatase 50 U/L (38-126); Aspartate Aminotransferase 24 IU/L (14-36); BUN Creatinine Ratio 28.6 (6-22); Bilirubin Total 0.9 mg/dL (0.2-1.3); Blood Urea Nitrogen 16 mg/dL (7-17); Calcium 9.8 mg/dL (8.4-10.2); Carbon Dioxide 22 mmol/L (22-32); Chloride 102 mmol/L (98-107); Estimated Glomerular Filt Rate > 60 mL/min (>60); Globulin 2.7 g/dL (1.7-4.1); Glucose 119 mg/dL (80-110); HEMOLYSIS < 15 (0-50); Sodium 133 mmol/L (137-145)
[2024-11-24 10:12] VITALS: PULSE 75; O2SAT 98
[2024-11-24 10:13] VITALS: BP 153/70; PULSE 77; O2SAT 97
[2024-11-24] MEDS: metroNIDAZOLE 500 MG TABLET PO (10:16)
[2024-11-24] MEDS: CIPROFLOXACIN 250 MG TABLET 500 MG PO (10:16)
[2024-11-24 10:21] VITALS: RESP 16
--- NOTE | 2024-11-24 10:21 | PC.NURSE ---
reports no pain
== END 2024-11-24 10:22 | disposition home or self-care (01) ==
PROVIDERS: Emergency Medicine; Emergency Provider Emergency Medicine; Family Provider Family Medicine; PCP Internal Medicine
DX: K57.32 Diverticulitis of large intestine without perforation or abscess without bleeding (principal); R31.9 Hematuria, unspecified; M54.50 Low back pain, unspecified
CPT/HCPCS: 74176; 80053; 81003; 81015; 85025; 99283; 99284

== ENCOUNTER → 2025-04-09 16:27 | Outpatient (CLI) | payer MEDICARE, BC, SELFPAY ==
[2025-04-09 17:33] LABS: Hematocrit 43.1 % (36-46); Hemoglobin 14.6 g/dL (12.0-16.0); Mean Corpuscular HGB Conc 33.8 % (30-36); Mean Corpuscular Hemoglobin 33.4 PG (26-34); Mean Corpuscular Volume 98.6 fL (80-100); Platelet Count 271 X10^3/uL (150-400)
[2025-04-09 17:56] LABS: Alanine Aminotransferase 14 IU/L (<35); Albumin 4.2 g/dL (3.5-5.0); Albumin Globulin Ratio 1.7 (1.0-2.8); Alkaline Phosphatase 65 U/L (38-126); Blood Urea Nitrogen 21 mg/dL (7-17); Calcium 10.3 mg/dL (8.4-10.2); Carbon Dioxide 24 mmol/L (22-32); Chloride 104 mmol/L (98-107); Estimated Glomerular Filt Rate > 60 mL/min (>60); Globulin 2.5 g/dL (1.7-4.1); Glucose 114 mg/dL (70-99); HEMOLYSIS < 15 (0-50); Potassium 4.8 mmol/L (3.4-5.1); Sodium 135 mmol/L (137-145); Total Protein 6.7 g/dL (6.3-8.2)
[2025-04-09 18:26] LABS: TSH w/ Reflex to FT4 0.19 uIU/mL (0.47-4.68)
[2025-04-09 18:53] LABS: Free T4, Direct Thyroxine 0.90 ng/dL (0.78-2.19)
== END ==
PROVIDERS: Family Provider Family Medicine; PCP Internal Medicine; Referring Provider Internal Medicine; Visit Provider Internal Medicine
DX: R42 Dizziness and giddiness (principal)
CPT/HCPCS: 36415; 80053; 84439; 84443; 85027

== ENCOUNTER → 2025-04-15 07:52 | Outpatient (CLI) | payer MEDICARE, BC, SELFPAY | PROVIDERS: Family Provider Family Medicine; PCP Internal Medicine; Referring Provider Internal Medicine; Visit Provider Internal Medicine | DX: R42 Dizziness and giddiness (principal) | CPT/HCPCS: 93242 ==